=== PATIENT | male | born 1960 | race Caucasian/White ===

== ENCOUNTER 2016-08-15 03:24 | Emergency (ER) | payer MEDICAID ==
[~2016-08-15] VITALS: Ht 182.9 cm; Wt 90.7 kg
[~2016-08-15 03:24] MED LIST: *INS REG3 SQ; Benazepril Hcl PO; CEFT1VIA15 IV; DOXY150T PO; ENOX40DI SQ; INSU100V28 SQ; Metformin Hcl PO
[2016-08-15 05:58] VITALS: BP 138/80
== END 2016-08-15 05:59 | disposition home or self-care (01) ==
LOC: ER 03:27
DX: F10.129 Alcohol abuse with intoxication, unspecified (principal); I10 Essential (primary) hypertension; R51 Headache; M86.9 Osteomyelitis, unspecified; G92 Toxic encephalopathy; E11.9 Type 2 diabetes mellitus without complications; Z79.4 Long term (current) use of insulin
CPT/HCPCS: 70450; 72125; 82962; 99284; A4606; L0172; Z7610

== ENCOUNTER 2017-09-15 11:53 | Inpatient (IN) | payer MEDICAID ==
[~2017-09-15] VITALS: Ht 165.1 cm; Wt 68.0 kg
--- NOTE | 2017-09-15 12:15 | NUR ---
EVALUATION TO WOUND ON R LEG. NAD NOTED. PT AAO X4, AMB WITH STEADY GAIT. RR EVEN AND UNLABORED. PENDING MD FREY. VSS.
[2017-09-15] MEDS ORDERED: IV NS 0.9% 1,000 ML BAG IV ONE (14:00)
[2017-09-15] MEDS ORDERED: VANCOMYCIN 1 GM in IV D5W 250 ML IV ONE (14:00)
[2017-09-15] MEDS ORDERED: CEFEPIME 1 GM VIAL IV ONE (14:00)
[2017-09-15 14:01] LABS: BASOPHILS # (AUTO) 0.3 /CMM (0.0-0.2); BASOPHILS % (AUTO) 2.8 % (0.0-2.0); EOSINOPHILS # (AUTO) 0.1 /CMM (0.0-0.7); EOSINOPHILS % (AUTO) 0.5 % (0.0-6.0); HEMATOCRIT 41 % (39-51); HEMOGLOBIN 13.8 g/dL (13.5-17.5); LYMPHOCYTES # (AUTO) 1.1 /CMM (0.8-4.8); LYMPHOCYTES % (AUTO) 9.2 % (20.0-44.0); MEAN CORPUSCULAR HEMOGLOBIN 29 PG (26.0-33.0); MEAN CORPUSCULAR HGB CONC 34 g/dl (31.0-36.0); MEAN CORPUSCULAR VOLUME 85 fL (80-96); MONOCYTES # (AUTO) 1.3 /CMM (0.1-1.30); MONOCYTES % (AUTO) 10.4 % (2.0-12.0); NEUTROPHILS # (AUTO) 9.3 /CMM (1.8-8.9); NEUTROPHILS % (AUTO) 77.1 % (43.0-81.0); PLATELET COUNT (AUTO) 446 /CMM (150-450); RDW COEFFICIENT OF VARIATION 13.1 (11.5-15.0); WHITE BLOOD COUNT (AUTO) 12.1 K/uL (4.3-11.0)
[2017-09-15 14:10] LABS: CALCIUM, SERUM 8.6 mg/dL (8.5-10.1); CREATININE 0.8 mg/dL (0.6-1.3); POTASSIUM 3.9 mmol/L (3.5-5.1)
[2017-09-15 14:14] LABS: INR 1.05 (0.85-1.15)
[2017-09-15 14:16] LABS: ALBUMIN 2.7 g/dL (3.4-5.0); BILIRUBIN,DIRECT 0.3 mg/dL (0.0-0.2); TOTAL PROTEIN, SERUM 9.1 g/dL (6.4-8.2)
[2017-09-15] MEDS ORDERED: CEFEPIME 2 GM in IV NS 0.9% 50 ML IV ONE (14:30)
[2017-09-15] MEDS ORDERED: CEFEPIME 2 GM in IV D5W 100 ML IV ONE (14:30)
[2017-09-15 16:59] LABS: APPEARANCE,URINE Clear (CLEAR); BILIRUBIN,URINE Negative (NEGATIVE); BLOOD, URINE Small Ery/uL (NEGATIVE); COLOR,URINE Yellow (YELLOW); KETONES,URINE Negative (NEGATIVE); LEUKOCYTE ESTERASE ,URINE Negative (NEGATIVE); NITRITE, URINE Negative (NEGATIVE); PH,URINE 6.5 (5.0-8.0); PROTEIN,URINE Negative (NEGATIVE); UGLUCOSE Negative (NEGATIVE); UROBILINOGEN,URINE 0.2 EU/dL (0.2)
[2017-09-15 17:13] LABS: BACTERIA,URINE None seen /HPF (None Seen); SQUAMOUS EPITHELIAL CELL,UR Few /HPF (None Seen); WBC,URINE 0-2 /HPF (0-3)
--- NOTE | 2017-09-15 17:59 | NUR ---
CALLED [facility] TISSUE TECHNOLOGIST WAS PAGED.
--- NOTE | 2017-09-15 18:52 | NUR ---
RECEIVED REPORT FROM JONAH STRONG.
--- NOTE | 2017-09-15 19:50 | NUR ---
LOUIS REGALADO GAVE REPORT TO ADMITTING RN FOR MS BED 327-2
--- NOTE | 2017-09-15 19:58 | NUR ---
PT TRANSFERRED VIA W/C
--- NOTE | 2017-09-15 20:02 | NUR ---
SCOUT SNIPER NEW ADMISSION NOTES RECEIVED PATIENT FROM ER VIA GURNEY, ACCOMPANIED BY STAFF, A & O X 4, MOZAMBICAN/CROATIAN SPEAKING. NO C/O PAIN, RESP EVEN & NON LABORED. NO DISCOMFORT NOTED. AMBULATORY TOLERATED. CONTINENT OF B & BM. BODY CHECK DONE & DOCUMENTED. PHOTOS TAKEN. DX IS UNCONTROLLED DIABETES/WOUND. ALL BELONGINGS ACCOUNTED FOR & DOCUMENTED BY SCRIPT MANAGER. ON TELE MONITORING WITH SR 82. IV SITE TO LAC, INTACT PATENT. ALL ORDERS VERIFIED WITH MD, NOTED & CARRIED OUT. WOUND SITES COVERED WITH DRY DRESSINGS. BED IN LOW LOCKED POSITION. CALL LIGHT WITHIN REACH. WILL CONTINUE TO MONITOR ACCORDINGLY.
[2017-09-15 20:05] VITALS: BP 158/94
[2017-09-15 20:10] VITALS: BP 158/94
[2017-09-15] MEDS ORDERED: ONDANSETRON HCL/PF 4 MG/2 ML VIAL IVP PRN (21:00)
[2017-09-15] MEDS ORDERED: HYDROCODONE/APAP 5/325MG 1 EACH TABLET PO PRN (21:00)
[2017-09-15] MEDS ORDERED: ACETAMINOPHEN 325 MG TABLET PO PRN (21:00)
[2017-09-15] MEDS ORDERED: ZOLPIDEM TARTRATE 5 MG TABLET PO PRN (21:00)
[2017-09-15] MEDS ORDERED: DEXTROSE 50%-WATER 50 ML DISP.SYRIN IV PRN (21:00)
[2017-09-15] MEDS ORDERED: MAGNESIUM HYDROXIDE 30 ML UDC PO PRN (21:00)
[2017-09-15] MEDS ORDERED: Z GUARD REMEDY 2 OZ OINT TP PRN (21:00)
[2017-09-15] MEDS ORDERED: MAG HYDROX/AL HYDROX/SIMETH 30 ML UDC PO PRN (21:00)
[2017-09-15] MEDS ORDERED: hydrALAZINE HCL 25 MG TABLET PO PRN (21:30)
[2017-09-15 22:00] VITALS: BP 134/81
[2017-09-15] MEDS ORDERED: VANCOMYCIN 1 GM in IV NS 0.9% 250 ML IV SCH (22:00)
[2017-09-15] MEDS: IV NS 0.9% 1,000 ML IV SCH (22:17)
[2017-09-15] MEDS: BLOOD SUGAR DIAGNOSTIC 1 EACH STRIP IN SCH (22:20)
[2017-09-15] MEDS: ENOXAPARIN SODIUM 40 MG/0.4 ML DISP.SYRIN SQ SCH (22:22)
--- NOTE | 2017-09-15 22:26 | NUR ---
VANCOMYCIN NOT ADMINISTERED PATIENT WAS GIVEN FIRST DOSE OF VANCOMYCIN IN THE ER, NEXT DOSE IS SCHEDULED @ 2100 BUT PER PHARMACY NOTE, DO NOT ADMINISTER VANCO, PHARMACY TO DOSE. WILL CONTINUE TO MONITOR THE PATIENT.
[2017-09-16] MEDS: BLOOD SUGAR DIAGNOSTIC 1 EACH STRIP IN SCH ×6 (01:28→20:53)
[2017-09-16 04:00] VITALS: BP 134/66
[2017-09-16] MEDS ORDERED: CEFEPIME 1 GM in IV NS 0.9% 50 ML IV SCH (05:00)
--- NOTE | 2017-09-16 05:41 | NUR ---
CABLE WIRER NOTE CEFEPIME IS DUE TO BE ADMINISTERED @ 0500, BUT NOT AVAILABLE IN THE [facility] ON THE FLOOR. INFORMED & FAXED TO [facility] [employer] PRODUCTION MACHINE OPERATOR, WAITING FOR PLASTICS PRODUCTION MACHINE OPERATOR TO BRING THE MEDICINE.
--- NOTE | 2017-09-16 06:45 | NUR ---
AV SPECIALIST NOTE HAVE NOT RECEIVED CEFEPIME FROM [facility] PERSONAL LINES SALES EXECUTIVE YET. [facility] PERSONAL LINES SALES EXECUTIVE INFORMED THAT IF HE WONT BE ABLE TO BRING THE MEDICINE BY 0600, WILL ENDORSE TO PHARMACY & AM RN TO F/U.
--- NOTE | 2017-09-16 07:09 | NUR ---
TRIAL COURT JUSTICE CLOSING NOTES PATIENT RESTING IN BED, A & O X 4, URUGUAYAN/NEPALI SPEAKING. NO C/O PAIN, RESP EVEN & NON LABORED. NO DISCOMFORT NOTED. AMBULATORY TOLERATED. CONTINENT OF B & BM. ON TELE MONITORING WITH SR 86. IV SITE TO LAC, INTACT PATENT. WOUND SITES COVERED WITH DRY DRESSINGS. BED IN LOW LOCKED POSITION. CALL LIGHT WITHIN REACH. WILL ENDORSE TO AM RN FOR CONTINUITY OF CARE.
[2017-09-16] MEDS: IV NS 0.9% 1,000 ML IV SCH ×2 (07:25→16:56)
--- NOTE | 2017-09-16 07:37 | NUR ---
FOLDER MACHINE ADJUSTER: INITIAL NOTE RECEIVED PT A/OX4. ON TELE MONITORING SR AT 85 BPM. NO DISTRESS NOTED. NO SOB NOTED. NO PAIN NOTED. BRP. AMBULATES WITHOUT ASSIST. BLE SWELLING AND DISCOLORATION NOTED. WOUND DRESSING INTACT. ON CCHO DIET. L AC #18 RUNNING NS AT 100ML/HR. SITE CLEAR AND PATENT. NO BLEEDING OR SWELLING NOTED. RESTING COMFORTABLY IN BED. CALL LIGHT WITHIN REACH.
--- NOTE | 2017-09-16 07:38 | NUR ---
INFORMED TO PHARMACY CEFEPIME WAS NOT AVAILABLE ON THE FLOOR, CLIENT SERVER PROGRAMMER MADE AWARE. SPOKE TO GAMALIEL @ PHARMACY & TIME OF THE MEDICINE WILL BE ADJUSTED, ENDORSED TO AM RN TO F/U.
[2017-09-16 07:51] LABS: BASOPHILS # (AUTO) 0.1 /CMM (0.0-0.2); BASOPHILS % (AUTO) 0.6 % (0.0-2.0); EOSINOPHILS # (AUTO) 0.1 /CMM (0.0-0.7); EOSINOPHILS % (AUTO) 1.6 % (0.0-6.0); HEMATOCRIT 34 % (39-51); HEMOGLOBIN 11.7 g/dL (13.5-17.5); LYMPHOCYTES % (AUTO) 10.9 % (20.0-44.0); MEAN CORPUSCULAR HEMOGLOBIN 30 PG (26.0-33.0); MEAN CORPUSCULAR HGB CONC 35 g/dl (31.0-36.0); MEAN CORPUSCULAR VOLUME 85 fL (80-96); MONOCYTES # (AUTO) 1.1 /CMM (0.1-1.30); MONOCYTES % (AUTO) 12.1 % (2.0-12.0); NEUTROPHILS % (AUTO) 74.8 % (43.0-81.0); PLATELET COUNT (AUTO) 360 /CMM (150-450); RDW COEFFICIENT OF VARIATION 13.7 (11.5-15.0); RED BLOOD CELL COUNT(AUTO) 3.95 MIL/uL (4.5-6.0); WHITE BLOOD COUNT (AUTO) 9.3 K/uL (4.3-11.0)
[2017-09-16] MEDS ORDERED: FEE PK DOSING 1 MIN EA MC ONE ×2 (07:51→07:53)
[2017-09-16 08:03] VITALS: BP 140/76
[2017-09-16 08:07] LABS: CALCIUM, SERUM 7.9 mg/dL (8.5-10.1); CREATININE 0.8 mg/dL (0.6-1.3); MAGNESIUM 1.8 mg/dL (1.8-2.4); POTASSIUM 3.7 mmol/L (3.5-5.1)
[2017-09-16 08:15] LABS: THYROID STIMULATING HORMONE 3.407 uIU/mL (0.358-3.74)
[2017-09-16] MEDS: CEFEPIME 1 GM in IV NS 0.9% 50 ML IV SCH ×3 (09:03→23:17)
[2017-09-16] MEDS: ASPIRIN 81 MG TAB.CHEW PO SCH (09:04)
[2017-09-16] MEDS: AMLODIPINE BESYLATE 5 MG TABLET PO SCH (09:04)
[2017-09-16] MEDS: INSULIN REGULAR, HUMAN 100 UNIT/ML 3 ML VIAL SQ PRN ×2 (09:13→17:05)
[2017-09-16] MEDS: VANCOMYCIN 1 GM in IV NS 0.9% 250 ML IV SCH ×2 (09:38→16:55)
--- NOTE | 2017-09-16 09:58 | NUR ---
WOUND CARE CONSULT: PT PRESENTS WITH LOWER EXTREMITY ULCERS WITH PURULENT DRAINAGE, PRESENT ON ADMISSION. PT REFUSED FULL SKIN ASSESSMENT OF BACK AND BUTTOCKS. PT IS AMBULATORY AND CONTINENT. DR KEARNS IN TO EXAMINE PT. DEFER TO PODIATRY FOR WOUND TREATMENT PLAN. WILL SEE PRN. FLORES IN AGREEMENT WITH PLAN OF CARE. Addendum: 09/16/17 at 0964 by SAGRARIO COLIN WNDNU Amended: Links added.
--- NOTE | 2017-09-16 15:59 | NUR ---
NOTIFIED DR HERRERA ABOUT US OF BLE VENOUS RESULTS. NO NEW ORDERS.
[2017-09-16] MEDS: LACTOBACILLUS RHAMNOSUS GG 1 EACH CAP.SPRINK PO SCH (16:56)
[2017-09-16 16:58] VITALS: BP 141/76
--- NOTE | 2017-09-16 18:34 | NUR ---
MS RN: CLOSING NOTE PT TOOK ALL MEDICATIONS ON TIME. NO ADVERSE REACTIONS NOTED. NO SOB NOTED. NO PAIN NOTED. A/OX4. PALESTINIAN SPEAKING. ABLE TO UNDERSTAND SOME LATVIAN. BRP. BEDREST DUE TO BLE BEDSIDE DEBRIDEMENT DONE 09/16/17 BY MD CAMACHO. DRESSING INTACT. TO BE CHANGED TOMORROW ORDERED BT . Ashley AC #22 RUNNING NS AT 100 ML/HR. SITE CLEAR AND PATENT. INSULIN GIVEN PER SLIDING SCALE. RESTING COMFORTABLY IN BED. CALL LIGHT WITHIN REACH. TO CALL NISB LAATE [phone] FOR ANY QUESTIONS OR NEEDS.
--- NOTE | 2017-09-16 19:30 | NUR ---
RN NOTES RECEIVED PATIENT IN BED AWAKE, OA X 3, ABLE TO MAKE NEEDS KNOWN. NO ACUTE DISTRESS NOTED. DENIES ANY PAIN AT THIS TIME. IV SITE PATENT, INTACT; IVF INFUSING ORDERED. SAFETY REMINDERS GIVEN. ON LOW BED WITH BILATERAL UPPER SIDE RAILS UP. CALL RUSHING WITHIN EASY REACH. WILL CONTINUE TO MONITOR.
[2017-09-16 20:00] VITALS: BP 139/71
[2017-09-16] MEDS: ENOXAPARIN SODIUM 40 MG/0.4 ML DISP.SYRIN SQ SCH (20:54)
[2017-09-17] MEDS: BLOOD SUGAR DIAGNOSTIC 1 EACH STRIP IN SCH ×6 (00:59→21:07)
[2017-09-17] MEDS: VANCOMYCIN 1 GM in IV NS 0.9% 250 ML IV SCH ×3 (02:01→17:56)
--- NOTE | 2017-09-17 06:26 | NUR ---
RN NOTES PATIENT ASLEEP, EASILY AROUSABLE. RESPIRATIONS EVEN. NO SIGNS OF PAIN NOTED. DUE MEDS GIVEN WITH NO ASE NOTED. NO SYMPTOMS OF HYPER/HYPOGLYCEMIA. NEEDS ATTENDED. SAFETY PRECAUTIONS AND COMFORT MEASURES IN PLACE. WILL GIVE REPORT TO DAY SHIFT FOR CONTINUITY OF CARE.
--- NOTE | 2017-09-17 07:00 | NUR ---
RN NOTES: PATIENT RESTING IN BED. AOX4. NO SIGNS OF DISTRESS NOTED. IV SITE GAUGE 22 PATENT AND INTACT. PATIENT DENYING PAIN. BED IN LOWEST LOCKED POSITION. CALL LIGHT WITHIN REACH. WILL CONTINUE TO MONITOR
[2017-09-17] MEDS: IV NS 0.9% 1,000 ML IV SCH ×3 (07:22→22:06)
[2017-09-17 08:00] VITALS: BP 147/71
[2017-09-17] MEDS: CEFEPIME 1 GM in IV NS 0.9% 50 ML IV SCH ×3 (08:43→23:31)
[2017-09-17] MEDS: ASPIRIN 81 MG TAB.CHEW PO SCH (08:47)
[2017-09-17] MEDS: LACTOBACILLUS RHAMNOSUS GG 1 EACH CAP.SPRINK PO SCH ×2 (08:48→16:36)
[2017-09-17] MEDS: AMLODIPINE BESYLATE 5 MG TABLET PO SCH (08:48)
[2017-09-17 12:13] LABS: BASOPHILS # (AUTO) 0.1 /CMM (0.0-0.2); EOSINOPHILS # (AUTO) 0.2 /CMM (0.0-0.7); EOSINOPHILS % (AUTO) 2.5 % (0.0-6.0); HEMATOCRIT 35 % (39-51); HEMOGLOBIN 12.4 g/dL (13.5-17.5); LYMPHOCYTES # (AUTO) 0.9 /CMM (0.8-4.8); MEAN CORPUSCULAR HEMOGLOBIN 30 PG (26.0-33.0); MEAN CORPUSCULAR HGB CONC 35 g/dl (31.0-36.0); MEAN CORPUSCULAR VOLUME 85 fL (80-96); MONOCYTES # (AUTO) 0.8 /CMM (0.1-1.30); MONOCYTES % (AUTO) 13.2 % (2.0-12.0); NEUTROPHILS # (AUTO) 4.3 /CMM (1.8-8.9); NEUTROPHILS % (AUTO) 69.3 % (43.0-81.0); PLATELET COUNT (AUTO) 376 /CMM (150-450); RED BLOOD CELL COUNT(AUTO) 4.17 MIL/uL (4.5-6.0); WHITE BLOOD COUNT (AUTO) 6.1 K/uL (4.3-11.0)
[2017-09-17 12:24] LABS: CREATININE 0.7 mg/dL (0.6-1.3); MAGNESIUM 1.7 mg/dL (1.8-2.4); POTASSIUM 3.7 mmol/L (3.5-5.1)
[2017-09-17] MEDS: Magnesium 1GM/D5W 100ML PREMIX 100 ML IV SCH ×2 (13:08→14:24)
[2017-09-17 16:00] VITALS: BP 149/75
--- NOTE | 2017-09-17 16:25 | NUR ---
RN NOTES: PT HELD DUE TO DVT IMAGING OF LOWER EXTRMITY RESULTS. DR HERRERA NOTIFIED. DR GAMINO AWARE WELL
--- NOTE | 2017-09-17 16:39 | NUR ---
RN NOTES: BLOOD SUGAR 136. INSULIN HELD PATIENT REFUSING. STATES THAT HE WILL NOT EAT NOW
--- NOTE | 2017-09-17 19:00 | NUR ---
RN NOTES: PATIENT'S RIGHT EXTREMITY ASSESSED; NOT RED NOR WARM TO TOUCH. PATIENT DENIES PAIN. NO SWELLING NOTED. CAPILLARY REFILL LESS THAN 3 SECONDS. PATIENT DENIES SENSORY DEFECIT
--- NOTE | 2017-09-17 19:00 | NUR ---
RN NOTES: PATIENT REFUSING INSULIN THROUGHOUT SHIFT AFTER EATING. BLOOD SUGAR BEING MONITORED BENEFITS AND RISKS EXPLAINED MULTIPLE TIMES.
--- NOTE | 2017-09-17 19:13 | NUR ---
RN NOTES: PATIENT RESTING IN BED. AOX4. NO SIGNS OF DISTRESS NOTED. PATIENT DENYING PAIN. IV SITE ON LEFT AC PATENT AND INTACT. BED IN LOWEST LOCKED POSITION. CALL LIGHT WITHIN REACH. PATIENT ENCOURAGED TO TURN AND POSITION Q 2 HOURS. WOUND DRESSING CHANGED. NO ADVERSE REACTIONS NOTED. WILL ENDORSE TO NEXT SHIFT
--- NOTE | 2017-09-17 19:25 | NUR ---
MS/POULTRY BUYER; RECEIVED PT'S REPORTS FROM THE DAY SHIFT RN FOR CONTINUITY OF CARE. AT THIS TIME PT IN BED AWAKE , ALERT AND ORIENTED X 4. VERBALLY RESPONSIVE. PT SAID I AM GOOD. DENIES PAIN. IVF ON PROGRESS. BED ON LOWER POSITION AND LOCKED FOR SAFETY. SIDE RAILS X 2 ARE UP FOR SAFETY. PT INSTRUCTED TO CALL FOR HELP AND CALL LIGHT WITHIN REACH. PT'S LT WOUND WITH DRESSING INTACT AND SO WITH THE RT LOWER LEG. NOTED PT VOIDING CLEAR YELLOW URINE HE USED THE URINAL.
[2017-09-17 20:00] VITALS: BP 147/79
[2017-09-17] MEDS: ENOXAPARIN SODIUM 40 MG/0.4 ML DISP.SYRIN SQ SCH (21:00)
--- NOTE | 2017-09-17 21:00 | NUR ---
MS/CASH POSTER; BS 131 COVERED WITH REGULAR INSULIN 2 UNITS SQ. WILL CONTINUE TO MONITOR.
[2017-09-17] MEDS: INSULIN REGULAR, HUMAN 100 UNIT/ML 3 ML VIAL SQ PRN (21:13)
[2017-09-18] MEDS: VANCOMYCIN 1 GM in IV NS 0.9% 250 ML IV SCH ×2 (00:35→09:46)
--- NOTE | 2017-09-18 01:00 | NUR ---
MS/GLUE JOINTER FEEDER; BS 140 COVERED WITH REGULAR INSULIN 2 UNITS SQ. CONTINUE TO MONITOR. PT IS AWAKE , ALERT AND ORIENTED AT THIS TIME. IVF ON PROGRESS.
[2017-09-18] MEDS: BLOOD SUGAR DIAGNOSTIC 1 EACH STRIP IN SCH ×6 (01:12→21:01)
[2017-09-18] MEDS: INSULIN REGULAR, HUMAN 100 UNIT/ML 3 ML VIAL SQ PRN ×3 (01:20→21:05)
--- NOTE | 2017-09-18 05:00 | NUR ---
MS/WOOD BORING MACHINE OPERATOR; BS 110 NO COVERAGE GIVEN. IVF ON PROGRESS.
--- NOTE | 2017-09-18 07:00 | NUR ---
MS/PROPERTY MANAGEMENT SPECIALIST; SLEPT FAIRLY. DENIES PAIN. IVF ON PROGRESS. CONTINUE TO MONITOR. WILL ENDORSE TO THE DAY SHIFT NURSE. CALL LIGHT WITHIN REACH.
[2017-09-18] MEDS: CEFEPIME 1 GM in IV NS 0.9% 50 ML IV SCH ×3 (07:56→23:49)
[2017-09-18 08:00] VITALS: BP 152/81
[2017-09-18] MEDS: ASPIRIN 81 MG TAB.CHEW PO SCH (08:03)
[2017-09-18] MEDS: AMLODIPINE BESYLATE 5 MG TABLET PO SCH (08:04)
[2017-09-18] MEDS: LACTOBACILLUS RHAMNOSUS GG 1 EACH CAP.SPRINK PO SCH ×2 (08:04→17:15)
[2017-09-18] MEDS: IV NS 0.9% 1,000 ML IV SCH ×2 (09:49→20:54)
[2017-09-18] MEDS ORDERED: DEXTROSE 50%-WATER 50 ML DISP.SYRIN IV PRN (10:30)
[2017-09-18 10:37] LABS: CALCIUM, SERUM 8.2 mg/dL (8.5-10.1); CREATININE 0.7 mg/dL (0.6-1.3); MAGNESIUM 1.7 mg/dL (1.8-2.4); POTASSIUM 3.8 mmol/L (3.5-5.1)
[2017-09-18] MEDS: Magnesium 1GM/D5W 100ML PREMIX 100 ML IV SCH ×2 (14:36→15:56)
[2017-09-18 16:00] VITALS: BP 136/76
[2017-09-18] MEDS: VANCOMYCIN 0.75 GM in IV D5W 250 ML IV SCH (18:02)
--- NOTE | 2017-09-18 18:06 | NUR ---
RN NOTES: PATIENT COMPLAINING OF CONSTIPATION. MILK OF MAGNESIA GIVEN
--- NOTE | 2017-09-18 19:30 | NUR ---
RN NOTES: PATIENT RESTING IN BED. NO SIGNS OF DISTRESS NOTED. IV SITE ON LEFT AC PATENT AND INTACT.PATIENT DENIES PAIN. PATIENT REMAINED THE SAME SINCE BEGINNING OF SHIFT DURING SHIFT, NO PAIN NOTED FROM PATIENT. DRESSING CHANGED. BLOOD SUGARS MONITORED CLOSELY. ENCOURAGED TO TURN AND REPOSITION EVERY 2 HOURS MILK OF MAGNESIA ADMINISTERED TO PATIENT, PATIENT STATES THAT HE HAS NOT HAD A BM AT THE END OF THE SHIFT. ENDORSED TO JONAH BURGOS
--- NOTE | 2017-09-18 19:30 | NUR ---
RN NOTES PATIENT RESTING IN BED. NO SIGNS OF DISTRESS NOTED. IV SITE ON LEFT AC PATENT AND INTACT.PATIENT DENIES PAIN. PATIENT REMAINED THE SAME SINCE BEGINNING OF SHIFT DURING SHIFT, NO PAIN NOTED FROM PATIENT. DRESSING CHANGED. BLOOD SUGARS MONITORED CLOSELY. ENCOURAGED TO TURN AND REPOSITION EVERY 2 HOURS MILK OF MAGNESIA ADMINISTERED TO PATIENT, PATIENT STATES THAT HE HAS NOT HAD A BM AT THE END OF THE SHIFT. IV FLUIDS STILL RUNNING FROM PREVIOUS ADMINISTRATION AT 100 ML/HOUR, BAG HALF FULL. ENDORSED TO JONAH BURGOS
--- NOTE | 2017-09-18 19:39 | NUR ---
RN Initial Notes Received pt sitting upright in bed,bilateral heels are offloaded. A/o x4, respirations are even and unlabored, not in any acute distress noted. Denies any pain at this time. No c/o SOb, n/v, chest pain. IV to LAC intact, no infiltration noted. Dressing kept clean and dry. Safety measures in place. Instructed pt to use call light when assistance is needed, call light is left within reach.
[2017-09-18 20:00] VITALS: BP 148/86
[2017-09-18 20:08] VITALS: BP 148/86
[2017-09-18] MEDS: ENOXAPARIN SODIUM 40 MG/0.4 ML DISP.SYRIN SQ SCH (21:01)
--- NOTE | 2017-09-18 23:30 | NUR ---
RN NOTES INSERTED NEW PERIPHERAL IV TO LEFT HAND G22. TOLERATED PROCEDURE WELL. NO S/SX OF INFECTION AT THIS TIME. DRESSING KEPT CLEAN AND DRY. WILL CONTINUE TO MONITOR THROUGHOUT SHIFT.
[2017-09-19] MEDS: VANCOMYCIN 0.75 GM in IV D5W 250 ML IV SCH ×3 (00:27→17:14)
[2017-09-19] MEDS: IV NS 0.9% 1,000 ML IV SCH ×2 (05:18→16:05)
--- NOTE | 2017-09-19 06:33 | NUR ---
RN Closing Notes All due meds given, needs met and rendered. a/o x3, remains afebrile. Respirations are even and unlabored, not in any acute distress noted. Denies any pain, SOB, n/v during shift. Currently on atb therapy with no ASE noted. Pt is able to reposition self, bilateral heels are offloaded. Safety measures in place. Bed is in its low/locked position. Instructed pt to use call light when assistance is needed, call light is left within reach. Will endorse to next shift for continuity of care.
[2017-09-19] MEDS: BLOOD SUGAR DIAGNOSTIC 1 EACH STRIP IN SCH ×4 (07:04→20:39)
--- NOTE | 2017-09-19 07:25 | NUR ---
ms rn initial notes Received patient in bed, asleep, head of bed elevated, no SOB or distress noted, on room air and tolerated well. IV intact and patent with IVF infusing well. Kept patient clean and comfortable in bed, call light with in patient reach, will continue to monitor accordingly.
[2017-09-19 08:00] VITALS: BP 142/73
[2017-09-19 08:15] LABS: CALCIUM, SERUM 8.2 mg/dL (8.5-10.1); CREATININE 0.7 mg/dL (0.6-1.3); MAGNESIUM 1.8 mg/dL (1.8-2.4); PHOSPHORUS 3.6 mg/dL (2.5-4.9)
[2017-09-19 08:28] LABS: POTASSIUM 4.1 mmol/L (3.5-5.1)
[2017-09-19] MEDS: LACTOBACILLUS RHAMNOSUS GG 1 EACH CAP.SPRINK PO SCH ×2 (08:35→17:14)
[2017-09-19] MEDS: ASPIRIN 81 MG TAB.CHEW PO SCH (08:35)
[2017-09-19] MEDS: CEFEPIME 1 GM in IV NS 0.9% 50 ML IV SCH ×2 (08:35→16:05)
[2017-09-19] MEDS: AMLODIPINE BESYLATE 5 MG TABLET PO SCH (08:36)
--- NOTE | 2017-09-19 11:05 | NUR ---
MS RN: REPORT NOTE RECEIVED PT REPORT FROM SHONNA. PT A/OX4.TOOK ALL MORNING MEDS ON TIME. NO ADVERSE REACTIONS NOTED. BEDREST. CCHO DIET. L WRIST RUNNING NS AT 100ML/HR. NO DISTRESS NOTED. NO SOB NOTED. NO PAIN NOTED.
[2017-09-19] MEDS: INSULIN REGULAR, HUMAN 100 UNIT/ML 3 ML VIAL SQ PRN ×2 (12:17→20:45)
[2017-09-19 16:00] VITALS: BP 153/81
--- NOTE | 2017-09-19 18:46 | NUR ---
MS RN: CLOSING NOTE PT TOOK ALL MEDICATIONS ON TIME. NO ADVERSE REACTIONS NOTED. A/OX4. NO DISTRESS NOTED. NO SOB NOTED. NO PAIN NOTED. CONTINENT. UES URINAL. WOUND CARE DONE ORDERED. L WRIST #22 RUNNING NS @ 100ML/HR. SITE CLEAR AND PATENT. INSULIN GIVEN ORDERED PER SLIDING CARE. RESTING COMFORTABLY IN BED. CALL LIGHT WITHIN REACH.
[2017-09-19 20:00] VITALS: BP 139/73
--- NOTE | 2017-09-19 20:00 | NUR ---
MS/RN OPENING NOTES PATIENTI
--- NOTE | 2017-09-19 20:00 | NUR ---
MS/RN OPENING NOTES PATIENT IN BED, ALERT, ORIENTED X3, ABLE TO VERBALIZE NEEDS AND RESPOND, CAN SPEAK AND UNDERSTAND SIMPLE CHINESE, BERMUDIAN SPEAKING, REQUIRE ASSISTANCE WITH WOUND TREATMENT ON BLE. MONITOR BLOOD SUGAR, ASSIST AND PROVIDE NEEDS, CALL LIGHTS WITHIN REACH, MONITORING FOR ANY CHANGES, RECEIVED REPORT FROM AM RN FOR RICKEY, BED IN LOCK POSITION.
[2017-09-19] MEDS: ENOXAPARIN SODIUM 40 MG/0.4 ML DISP.SYRIN SQ SCH (20:27)
[2017-09-20] MEDS: CEFEPIME 1 GM in IV NS 0.9% 50 ML IV SCH ×2 (00:06→08:03)
[2017-09-20] MEDS: VANCOMYCIN 0.75 GM in IV D5W 250 ML IV SCH ×2 (01:15→08:55)
[2017-09-20] MEDS: IV NS 0.9% 1,000 ML IV SCH (01:53)
[2017-09-20] MEDS: BLOOD SUGAR DIAGNOSTIC 1 EACH STRIP IN SCH ×2 (05:58→12:09)
--- NOTE | 2017-09-20 06:47 | NUR ---
326-2 MS/RN NOTES PATEINT ABLE TO SLLEP DURING THE NIGHT.REQUIRE TREATMENT, CHANGED DAMION ZHOU, WILL CONTINUE TO MONITOR, DENIES PAIN,ON BLOOD SUGAR CHECK MONITORING.WILL ENDORSE TO AM RN FOR RICKEY.
--- NOTE | 2017-09-20 07:46 | NUR ---
MS RN: CLOSING NOTE RECEIVED PT A/OX4. NO DISTRESS NOTED. NO SOB NOTED. NO PAIN NOTED. AMBULATORY. CONTINENT. USES URINAL. L WRIST #22 RUNNING NS AT 100ML/HR. SITE CLEAR AND PATENT. NO REDNESS OR BLEEDING NOTED. RESTING COMFORTABLY IN BED. CALL LIGHT WITHIN REACH.
[2017-09-20 08:00] VITALS: BP 145/81
[2017-09-20] MEDS: ASPIRIN 81 MG TAB.CHEW PO SCH (08:03)
[2017-09-20] MEDS: LACTOBACILLUS RHAMNOSUS GG 1 EACH CAP.SPRINK PO SCH (08:03)
[2017-09-20] MEDS: AMLODIPINE BESYLATE 5 MG TABLET PO SCH (08:04)
[2017-09-20 08:15] LABS: CALCIUM, SERUM 8.3 mg/dL (8.5-10.1); CREATININE 0.7 mg/dL (0.6-1.3); POTASSIUM 4.2 mmol/L (3.5-5.1)
--- NOTE | 2017-09-20 10:41 | NUR ---
ms rn notes Transfer care from other RN, patient in bed, no SOB or distress noted. No complaint of pain or discomfort, nor chest pain. Will continue to monitor accordingly.
--- NOTE | 2017-09-20 10:44 | NUR ---
MS RN: TRANSFER NOTE GAVE REPORT TO SHONNA MCKENZIE. TOOK ALL MEDICATIONS ON TIME. NO ADVERSE REACTIONS NOTED. NO PAIN NOTED. NO RICKEY NOTED. STABLE. L HAND #22 RUNNING NS AT 100ML/HR. SITE CLEAR AND PATENT. RESTING COMFORTABLY IN BED. CALL LIGHT WITHIN REACH.
[2017-09-20] MEDS ORDERED: LACT1CAP72 PO (10:49)
[2017-09-20] MEDS ORDERED: ASPI-1169 PO (10:49)
[2017-09-20] MEDS ORDERED: LEVO500T75 PO (10:49)
[2017-09-20] MEDS: INSULIN REGULAR, HUMAN 100 UNIT/ML 3 ML VIAL SQ PRN (12:11)
[2017-09-20 16:00] VITALS: BP_SYST 125; BP_SYST 142; BP_DIAS 72; BP_DIAS 80
--- NOTE | 2017-09-20 17:30 | NUR ---
ms rn pain management notes discharge instructions given to patient and able to understand. Signed discharge paper and belongings list, no items missing. Flu and pneumonia vaccine not given due to refusal. Explained the risk and benefits x 3 and still refused. Wound pictures not taken due to patient in a hurry and refusing pictures. Patient left via wheelchair accompanied by KENNETH baumann and Lori Acosta in stable condition no complaint of pain or discomfort noted. On room and tolerated well. Health teaching and education rendered. Informed Patient to follow up with primary health care physician in 1-2 weeks after discharge. MD and charge nurse aware. Vital signs checked and recorded.
== END 2017-09-20 17:20 | disposition home or self-care (01) | DRG 317 ==
LOC: ER 11:54 → TELE 19:42 → MED 09-16 09:30
PROVIDERS: ADMIT Internal Medicine; ATTEND Internal Medicine
PROC: 0KBW0ZZ Excision of Left Foot Muscle, Open Approach (ICD-10-PCS; principal; 2017-09-16)
PROC: 0KBS0ZZ Excision of Right Lower Leg Muscle, Open Approach (ICD-10-PCS; principal; 2017-09-16)
DX: E11.69 Type 2 diabetes mellitus with other specified complication (principal); M86.9 Osteomyelitis, unspecified; G92 Toxic encephalopathy; E11.621 Type 2 diabetes mellitus with foot ulcer; E11.42 Type 2 diabetes mellitus with diabetic polyneuropathy; E44.0 Moderate protein-calorie malnutrition; I82.401 Acute embolism and thrombosis of unspecified deep veins of right lower extremity; E11.51 Type 2 diabetes mellitus with diabetic peripheral angiopathy without gangrene; L03.115 Cellulitis of right lower limb; E87.1 Hypo-osmolality and hyponatremia; L97.529 Non-pressure chronic ulcer of other part of left foot with unspecified severity; L03.032 Cellulitis of left toe; I87.2 Venous insufficiency (chronic) (peripheral); Z79.4 Long term (current) use of insulin; Z79.899 Other long term (current) drug therapy; I10 Essential (primary) hypertension; M85.80 Other specified disorders of bone density and structure, unspecified site; Z91.19 Patient's noncompliance with other medical treatment and regimen; Z91.14 Patient's other noncompliance with medication regimen; Z89.422 Acquired absence of other left toe(s); Z82.49 Family history of ischemic heart disease and other diseases of the circulatory system; F10.10 Alcohol abuse, uncomplicated; Y90.9 Presence of alcohol in blood, level not specified
CPT/HCPCS: 36415; 71045-TC; 73590-TC; 73630-TC; 80048-TC; 80061-TC; 80076-TC; 80202-TC; 81000-TC; 82746; 82962-TC; 83540-TC; 83605-TC; 83735-TC; 84100-TC; 84443-TC; 85025-TC; 85652-TC; 85730-TC; 87040-TC; 87081-TC; 87086-TC; 93307-TC; 93970-TC; A4216; A4217; A4606; A6402; J0692; J1650; J1815; J3370; J3475; J7030; J7050; J7060; Z7610

== ENCOUNTER 2018-10-24 13:20 | Inpatient (IN) | payer MEDICAID ==
[~2018-10-24] VITALS: Ht 172.7 cm; Wt 110.2 kg
[~2018-10-24 13:20] MED LIST changes: -*INS REG3 SQ; +ASPI-1169 PO; -Benazepril Hcl PO; -CEFT1VIA15 IV; -DOXY150T PO; -ENOX40DI SQ; -INSU100V28 SQ; +LACT1CAP72 PO; +LEVO500T75 PO; -Metformin Hcl PO
--- NOTE | 2018-10-24 13:20 | NUR ---
PT BIB DAUGHTER C/O BLE CELLULITIS AND SOB FOR DAYS. PT IS AAOX3 CITIZEN OF [place] SPEAKING ONLY, NOT IN RESPIRATORY DISTRESS, V/S STABLE, KEPT RESTED AND COMFORTABLE, WILL CONTINUE TO MONITOR.
--- NOTE | 2018-10-24 13:34 | NUR ---
GLENDY HARGROVE AT BEDSIDE FOR EVAL.
[2018-10-24] MEDS ORDERED: VANCOMYCIN 1 GM in IV D5W 250 ML IV ONE (14:00)
[2018-10-24] MEDS ORDERED: IV NS 0.9% 1,000 ML BAG IV ONE ×2 (14:00→14:30)
[2018-10-24] MEDS ORDERED: PIPERACILLIN /TAZOBACTAM 3.375 G in IV D5W 50 ML IV ONE (14:00)
[2018-10-24] MEDS ORDERED: ONDANSETRON HCL/PF 4 MG/2 ML VIAL IVP ONE (14:00)
[2018-10-24] MEDS ORDERED: MORPHINE SULFATE INJ 2 MG/ML DISP.SYRIN IV ONE (14:00)
--- NOTE | 2018-10-24 14:02 | NUR ---
IV LINE ESTABLISHED LABS DRAWNED AND SENT TO LAB.
[2018-10-24] MEDS ORDERED: ONDANSETRON HCL/PF 4 MG/2 ML VIAL ONE (14:08)
[2018-10-24] MEDS ORDERED: MORPHINE SULFATE INJ 4 MG/ML DISP.SYRIN ONE (14:08)
--- NOTE | 2018-10-24 14:10 | NUR ---
TAKER OUT AT BEDSIDE FOR XRAY.
[2018-10-24 14:16] LABS: BASOPHILS # (AUTO) 0.1 /CMM (0.0-0.2); BASOPHILS % (AUTO) 0.2 % (0.0-2.0); EOSINOPHILS % (AUTO) 0.9 % (0.0-6.0); HEMATOCRIT 38 % (39-51); HEMOGLOBIN 13.2 g/dL (13.5-17.5); LYMPHOCYTES # (AUTO) 0.4 /CMM (0.8-4.8); MEAN CORPUSCULAR HGB CONC 34 g/dl (31.0-36.0); MEAN CORPUSCULAR VOLUME 87 fL (80-96); MONOCYTES # (AUTO) 0.8 /CMM (0.1-1.30); MONOCYTES % (AUTO) 2.2 % (2.0-12.0); NEUTROPHILS % (AUTO) 95.7 % (43.0-81.0); PLATELET COUNT (AUTO) 276 /CMM (150-450); RED BLOOD CELL COUNT(AUTO) 4.43 MIL/uL (4.5-6.0)
[2018-10-24 14:18] LABS: WHITE BLOOD COUNT (AUTO) 36.6 K/uL (4.3-11.0)
[2018-10-24 14:24] LABS: CALCIUM, SERUM 7.7 mg/dL (8.5-10.1); CARBON DIOXIDE 25 mmol/L (21-32); CHLORIDE 87 mmol/L (98-107); CREATININE 1.1 mg/dL (0.6-1.3); GLUCOSE 200 mg/dL (74-106); POTASSIUM 3.4 mmol/L (3.5-5.1); SODIUM SERUM 121 mmol/L (136-145); UREA NITROGEN, BLOOD 9 mg/dL (7-18)
[2018-10-24 14:38] LABS: ALANINE AMINOTRANSFERASE 22 U/L (12-78); ALBUMIN 2.2 g/dL (3.4-5.0); ALKALINE PHOSPHATASE 94 U/L (46-116); ASPARTATE AMINOTRANSFERASE 35 U/L (15-37); BILIRUBIN,DIRECT 0.5 mg/dL (0.0-0.2); BILIRUBIN,TOTAL 1.3 mg/dL (0.2-1.0); TOTAL PROTEIN, SERUM 7.5 g/dL (6.4-8.2)
[2018-10-24 14:39] LABS: B-TYPE NATRIURETIC PEPTIDE 3593 PG/ML (0-125)
--- NOTE | 2018-10-24 15:00 | NUR ---
TECH AT BEDSIDE FOR ULTRASOUND.
[2018-10-24 15:25] LABS: BAND % (MANUAL) 11 % (0.0-5.0); LYMPHOCYTES % (MANUAL) 3 % (16-48); MONOCYTES % (MANUAL) 3 % (0-11.0); NEUTROPHILS % (MANUAL) 83 (42-76)
--- NOTE | 2018-10-24 16:17 | NUR ---
EPIC CUSTOMS DIRECTOR PAGED VIA JASMIN PAN
--- NOTE | 2018-10-24 16:39 | NUR ---
LUCERO LOADER MAGAZINE GRINDER AT BEDSIDE FOR EVAL.
[2018-10-24] MEDS ORDERED: IV NS 0.9% 1,000 ML IV PRN (17:25)
[2018-10-24] MEDS ORDERED: MAG HYDROX/AL HYDROX/SIMETH 30 ML UDC PO PRN (17:30)
[2018-10-24] MEDS ORDERED: MAGNESIUM HYDROXIDE 30 ML UDC PO PRN (17:30)
[2018-10-24] MEDS ORDERED: HYDROCODONE/APAP 5/325MG 1 EACH TABLET PO PRN (17:30)
[2018-10-24] MEDS ORDERED: DEXTROSE 50%-WATER 50 ML DISP.SYRIN IV PRN (17:30)
[2018-10-24] MEDS ORDERED: CEFEPIME 1 GM in IV D5W 50 ML IV SCH (17:30)
[2018-10-24] MEDS: BLOOD SUGAR DIAGNOSTIC 1 EACH STRIP VI SCH ×2 (17:30→21:30)
[2018-10-24] MEDS ORDERED: Z GUARD REMEDY 2 OZ OINT TP PRN (17:30)
[2018-10-24] MEDS ORDERED: HYDROMORPHONE INJ 2 MG/ML DISP.SYRIN IV PRN (17:30)
[2018-10-24] MEDS ORDERED: ACETAMINOPHEN 325 MG TABLET PO PRN (17:30)
[2018-10-24] MEDS ORDERED: LORAZEPAM INJ 2 MG/ML VIAL IV PRN (17:30)
[2018-10-24] MEDS ORDERED: ONDANSETRON HCL/PF 4 MG/2 ML VIAL IVP PRN (17:30)
--- NOTE | 2018-10-24 19:00 | NUR ---
REPORT GIVEN TO JONAH NGUYEN FOR RICKEY.
--- NOTE | 2018-10-24 19:18 | NUR ---
SUPERVISOR PRINTING AND STAMPING NOTE RECEIVED PT VIA STRETCHER FROM ER, AOX3, SPEECH CLEAR, EVEN TONE AND PRESSURE, DENIES PAIN CURRENTLY, ON TELE ST, DENIES ANY CARDIAC OR RESPIRATORY DISTRESS, R HAND # 18G IV PATENT FLUSHING WELL, SKIN KEPT CLEAN AND DRY, PT INSTRUCTED MOTTLE LAY UP OPERATOR LIGHT USE, BED IN LOW LOCKED POSITION, WILL CONTINUE TO MONITOR FOR ANY CHANGES.
[2018-10-24 20:00] VITALS: BP 170/83
[2018-10-24] MEDS: *INSULIN REGULAR(HUMULIN R)HUM 100 UNIT/ML VIAL SQ PRN (21:33)
[2018-10-24] MEDS ORDERED: FLUCONAZOLE IN NS 100 MG in PREMIX 1 EA IV SCH ×2 (22:00)
[2018-10-25] VITALS: BP 151/72
[2018-10-25] MEDS ORDERED: FLUCONAZOLE IN NS 100 ML IV ONE (00:06)
--- NOTE | 2018-10-25 00:13 | NUR ---
call center rn note medication fluconazole 50mg/100ml iv was not available at scheduled time, administered late.
[2018-10-25 04:00] VITALS: BP 142/69
[2018-10-25 07:03] LABS: BASOPHILS # (AUTO) 0.1 /CMM (0.0-0.2); BASOPHILS % (AUTO) 0.2 % (0.0-2.0); HEMATOCRIT 34 % (39-51); HEMOGLOBIN 11.2 g/dL (13.5-17.5); LYMPHOCYTES # (AUTO) 0.5 /CMM (0.8-4.8); LYMPHOCYTES % (AUTO) 1.5 % (20.0-44.0); MEAN CORPUSCULAR HGB CONC 33 g/dl (31.0-36.0); MEAN CORPUSCULAR VOLUME 87 fL (80-96); MONOCYTES # (AUTO) 0.8 /CMM (0.1-1.30); MONOCYTES % (AUTO) 2.5 % (2.0-12.0); NEUTROPHILS # (AUTO) 30.1 /CMM (1.8-8.9); NEUTROPHILS % (AUTO) 95.8 % (43.0-81.0); PLATELET COUNT (AUTO) 231 /CMM (150-450); RED BLOOD CELL COUNT(AUTO) 3.86 MIL/uL (4.5-6.0)
[2018-10-25 07:11] LABS: ALBUMIN 1.7 g/dL (3.4-5.0); BILIRUBIN,TOTAL 1.1 mg/dL (0.2-1.0); CALCIUM, SERUM 7.3 mg/dL (8.5-10.1); CREATININE 0.9 mg/dL (0.6-1.3); MAGNESIUM 1.3 mg/dL (1.8-2.4); PHOSPHORUS 2.1 mg/dL (2.5-4.9); POTASSIUM 3.2 mmol/L (3.5-5.1); TOTAL PROTEIN, SERUM 6.1 g/dL (6.4-8.2)
[2018-10-25] MEDS: PANTOPRAZOLE 40 MG TABLET.DR PO SCH (07:28)
[2018-10-25 07:46] LABS: WHITE BLOOD COUNT (AUTO) 31.5 K/uL (4.3-11.0)
[2018-10-25] MEDS: BLOOD SUGAR DIAGNOSTIC 1 EACH STRIP VI SCH ×4 (07:59→21:08)
[2018-10-25 08:00] VITALS: BP 133/77
[2018-10-25] MEDS ORDERED: FEE PK DOSING 1 MIN EA MC ONE (08:07)
[2018-10-25 08:20] LABS: BAND % (MANUAL) 2 % (0.0-5.0); LYMPHOCYTES % (MANUAL) 2 % (16-48); MONOCYTES % (MANUAL) 4 % (0-11.0); NEUTROPHILS % (MANUAL) 92 (42-76)
[2018-10-25] MEDS ORDERED: CEFEPIME 1 GM in IV D5W 50 ML IV SCH (09:00)
[2018-10-25] MEDS: MULTIVITAMINS,THERAGRAN 1 UDTAB TABLET PO SCH (09:24)
[2018-10-25] MEDS: THIAMINE HCL 100 MG TABLET PO SCH (09:24)
[2018-10-25] MEDS: FOLIC ACID 1 MG TABLET PO SCH (09:24)
[2018-10-25] MEDS: CEFEPIME 2 GM in IV D5W 100 ML IV SCH ×2 (09:25→20:06)
[2018-10-25] MEDS: ASPIRIN 81 MG TAB.CHEW PO SCH (09:25)
[2018-10-25] MEDS ORDERED: Magnesium 1GM/D5W 100ML PREMIX 100 ML IV SCH (10:42)
[2018-10-25] MEDS: VANCOMYCIN 1.25 GM in IV D5W 500 ML IV SCH ×2 (10:49→20:48)
[2018-10-25] MEDS ORDERED: K PHOS NEUTRAL 250 MG TABLET PO ONE (11:00)
[2018-10-25] MEDS ORDERED: POTASSIUM CHLORIDE 20 MEQ TAB.PRT.SR PO ONE (11:00)
[2018-10-25] MEDS ORDERED: NEUTRA PHOS 1 POWD.PACKET PO ONE (11:00)
[2018-10-25] MEDS ORDERED: POTASSIUM CHLORIDE 20 MEQ TAB.PRT.SR PO SCH (11:00)
[2018-10-25] MEDS: Magnesium 1GM/D5W 100ML PREMIX 100 ML IV SCH ×2 (11:41→12:16)
[2018-10-25 12:00] VITALS: BP 149/73
[2018-10-25] MEDS: *INSULIN REGULAR(HUMULIN R)HUM 100 UNIT/ML VIAL SQ PRN (13:31)
[2018-10-25 16:00] VITALS: BP 136/69
[2018-10-25] MEDS ORDERED: SILVER SULFADIAZINE CREAM 25 GM TUBE TP SCH (17:00)
--- NOTE | 2018-10-25 19:10 | NUR ---
SENIOR ACCOUNT CLERK NOTE PATIENT IS AOX3, SPEECH CLEAR, EVEN TONE AND PRESSURE, DENIES PAIN CURRENTLY, ON TELE ST/SR, DENIES ANY CARDIAC OR RESPIRATORY DISTRESS, R HAND # 18G IV WITH NS AT 100 ML/HR, PATENT FLUSHING WELL, SKIN KEPT CLEAN AND DRY, SAFETY MAINTAINED AT ALL TIMES, CALL LIGHT WITHIN REACH, BED IN LOW LOCKED POSITION, WILL CONTINUE TO MONITOR FOR ANY CHANGES.
--- NOTE | 2018-10-25 19:27 | NUR ---
HOT PLATE PLYWOOD PRESS OPERATOR CLOSING NOTE PATIENT IN BED, AWAKE, NO DISTRESS OR SOB, ON ROOM AIR, NO PAIN, AOX3, ON TELE ST 90'S, R HAND # 18G IV INTACT AND PATENT RUNNING NS @ 5ML/HR. SKIN KEPT CLEAN AND DRY, SAFETY MEASURES IN PLACE. CALL LIGHT WITHIN REACH. CARE ENDORSED TO COSTING MANAGER RN.
[2018-10-25 20:00] VITALS: BP_SYST 158; BP_DIAS 80; BP_DIAS 88
[2018-10-25] MEDS: FLUCONAZOLE (100 MG) 100 MG TABLET PO SCH (21:08)
[2018-10-25] MEDS: INSULIN REGULAR, HUMAN 100 UNIT/ML 3 ML VIAL SQ PRN (21:12)
[2018-10-26] VITALS (7 sets, daily range): BP systolic 149–168; BP diastolic 79–90
[2018-10-26 06:37] LABS: BASOPHILS # (AUTO) 0.1 /CMM (0.0-0.2); BASOPHILS % (AUTO) 0.3 % (0.0-2.0); EOSINOPHILS % (AUTO) 0.1 % (0.0-6.0); HEMATOCRIT 32 % (39-51); HEMOGLOBIN 11.2 g/dL (13.5-17.5); LYMPHOCYTES # (AUTO) 0.5 /CMM (0.8-4.8); LYMPHOCYTES % (AUTO) 1.7 % (20.0-44.0); MEAN CORPUSCULAR HGB CONC 35 g/dl (31.0-36.0); MEAN CORPUSCULAR VOLUME 86 fL (80-96); MONOCYTES # (AUTO) 1.1 /CMM (0.1-1.30); MONOCYTES % (AUTO) 4.1 % (2.0-12.0); NEUTROPHILS # (AUTO) 25.9 /CMM (1.8-8.9); NEUTROPHILS % (AUTO) 93.8 % (43.0-81.0); PLATELET COUNT (AUTO) 225 /CMM (150-450); RED BLOOD CELL COUNT(AUTO) 3.75 MIL/uL (4.5-6.0); WHITE BLOOD COUNT (AUTO) 27.5 K/uL (4.3-11.0)
--- NOTE | 2018-10-26 06:40 | NUR ---
FILM WRITER NOTE DR CRUZ CALLED CONCERNING XRAY OF LEFT FOOT STATES OSTEOMYELITIS AROUND 5TH TOE POSSIBLE GANGRENE GOING TO BONE, STATES WILL SEND FINAL ANALYSIS.
[2018-10-26] MEDS: IV NS 0.9% 1,000 ML IV PRN ×2 (06:42→17:21)
[2018-10-26 06:56] LABS: CALCIUM, SERUM 7.4 mg/dL (8.5-10.1); CREATININE 0.8 mg/dL (0.6-1.3); MAGNESIUM 1.6 mg/dL (1.8-2.4); PHOSPHORUS 2.5 mg/dL (2.5-4.9); POTASSIUM 3.1 mmol/L (3.5-5.1)
--- NOTE | 2018-10-26 08:03 | NUR ---
HAND STONER NOTES RECEIVE PATIENT IN BED, SLEEPING BUT EASY TO WAKE UP, PATIENT ALERT ORIENTED, BLE WITH DRESSING ON, ABLE TO MOVE BOTH TOES ON BOTH LEGS, SKIN WARM TO TOUCH, RIGHT HAND HL ON IV FLUID ORDERED, BED LOCKED IN LOWEST POSITION, AND CALL LIGHT IS IN REACH, PATIENT ON TELE MONITOR SR HEART RATE 94, WILL CONTINUE TO MONITOR CLOSELY
[2018-10-26] MEDS: FOLIC ACID 1 MG TABLET PO SCH (08:26)
[2018-10-26] MEDS: PANTOPRAZOLE 40 MG TABLET.DR PO SCH (08:26)
[2018-10-26] MEDS: ASPIRIN 81 MG TAB.CHEW PO SCH (08:26)
[2018-10-26] MEDS: MULTIVITAMINS,THERAGRAN 1 UDTAB TABLET PO SCH (08:26)
[2018-10-26] MEDS: FLUCONAZOLE (100 MG) 100 MG TABLET PO SCH (08:26)
[2018-10-26] MEDS: THIAMINE HCL 100 MG TABLET PO SCH (08:26)
[2018-10-26] MEDS: CEFEPIME 2 GM in IV D5W 100 ML IV SCH ×2 (08:28→20:20)
[2018-10-26] MEDS: ENOXAPARIN SODIUM 40 MG/0.4 ML DISP.SYRIN SQ SCH (08:33)
[2018-10-26] MEDS: BLOOD SUGAR DIAGNOSTIC 1 EACH STRIP VI SCH ×4 (08:34→21:22)
[2018-10-26] MEDS: VANCOMYCIN 1.25 GM in IV D5W 500 ML IV SCH ×2 (09:27→21:21)
[2018-10-26] MEDS: POTASSIUM CHLORIDE 20 MEQ TAB.PRT.SR PO SCH ×2 (09:29→10:17)
--- NOTE | 2018-10-26 10:00 | NUR ---
TELE,RN NOTE NEW HL ON LT HAND INSERTED WITH GOOD BLOOD RETURNE, ALL NEEDS ATTENDED, WILL CONT TO MONITOR CLOSELY
[2018-10-26] MEDS: Magnesium 1GM/D5W 100ML PREMIX 100 ML IV SCH ×2 (10:17→11:13)
--- NOTE | 2018-10-26 12:00 | NUR ---
HORTICULTURAL SPECIALTY GROWER INSIDE NOTE BLOOD SUGAR 168 MG\ DL WILL GIVE COVERAGE WITH INSULIN
--- NOTE | 2018-10-26 12:00 | NUR ---
MS RN NOTE TX DONE ON BOTH LEGS ORDERED , KEEP CLEAN DRY , CALL LIGHT WITHIN REACH
--- NOTE | 2018-10-26 14:41 | NUR ---
MS RN NOTE WOUND CX FROM LT LEG DONE , LAB NOTIFIED ALSO, FAMILY AT BEDSIDE Addendum: 10/26/18 at 1444 by LILIAN GUERRA RN SPOKE WITH DR LORE GIPSON NOTIFIED THAT BP 160/56 AND NA TODAY 123 ORDERED PILI PEREZU
--- NOTE | 2018-10-26 15:11 | NUR ---
LADLER NOTE PATIENT C\O COUGH, LORE GIPSON DNP NOTIFIED STATED CONT ON ATB NO NEW ORDER GIVEN AT THIS TIME ,NO NEW ORDER GIVEN FOR NA 123
[2018-10-26] MEDS: VALSARTAN 80 MG TABLET PO SCH (15:31)
[2018-10-26] MEDS: LACTOBACILLUS RHAMNOSUS GG 1 EACH CAP.SPRINK PO SCH (16:21)
--- NOTE | 2018-10-26 17:42 | NUR ---
MS RN NOTE CONT ON IVF ORDERED , ALL NEEDS ATTENDED ,NOT IN DISTRESS
--- NOTE | 2018-10-26 18:32 | NUR ---
MS RN NOTE ATE DINNER , ABLE TO EAT SELF , ALL NEEDS ATTENDED, NOT IN ACTE DISTRESS, CONT ON IVF ORDERED BED IN LOWEST AND LOCKED POSITION,
--- NOTE | 2018-10-26 19:00 | NUR ---
SOLUTION MANAGER NOTE PATIENT IS AOX3, SPEECH CLEAR, DENIES PAIN CURRENTLY, ON TELE ST/SR, ON ROOM AIR, DENIES ANY CARDIAC OR RESPIRATORY DISTRESS, R HAND # 18G IV WITH NS AT 125 ML/HR, LEFT HAND #24G SL, BOTH PATENT FLUSHING WELL, SKIN KEPT CLEAN AND DRY, SAFETY MAINTAINED AT ALL TIMES, CALL LIGHT WITHIN REACH, BED IN LOW LOCKED POSITION, WILL CONTINUE TO MONITOR FOR ANY CHANGES.
[2018-10-26] MEDS: INSULIN REGULAR, HUMAN 100 UNIT/ML 3 ML VIAL SQ PRN (21:22)
[2018-10-27 04:00] VITALS: BP 156/84
[2018-10-27] MEDS: IV NS 0.9% 1,000 ML IV PRN ×2 (04:29→18:43)
[2018-10-27] MEDS: VANCOMYCIN 1.25 GM in IV D5W 500 ML IV SCH ×3 (04:30→21:11)
[2018-10-27 07:24] LABS: BASOPHILS # (AUTO) 0.1 /CMM (0.0-0.2); BASOPHILS % (AUTO) 0.6 % (0.0-2.0); EOSINOPHILS % (AUTO) 0.3 % (0.0-6.0); HEMATOCRIT 33 % (39-51); HEMOGLOBIN 11.4 g/dL (13.5-17.5); LYMPHOCYTES # (AUTO) 0.5 /CMM (0.8-4.8); LYMPHOCYTES % (AUTO) 3.9 % (20.0-44.0); MEAN CORPUSCULAR HGB CONC 34 g/dl (31.0-36.0); MEAN CORPUSCULAR VOLUME 86 fL (80-96); MONOCYTES % (AUTO) 7.7 % (2.0-12.0); NEUTROPHILS % (AUTO) 87.5 % (43.0-81.0); PLATELET COUNT (AUTO) 225 /CMM (150-450); RED BLOOD CELL COUNT(AUTO) 3.87 MIL/uL (4.5-6.0); WHITE BLOOD COUNT (AUTO) 13.7 K/uL (4.3-11.0)
[2018-10-27 07:46] LABS: CALCIUM, SERUM 7.3 mg/dL (8.5-10.1); CREATININE 0.7 mg/dL (0.6-1.3); MAGNESIUM 1.7 mg/dL (1.8-2.4); PHOSPHORUS 2.4 mg/dL (2.5-4.9); POTASSIUM 3.2 mmol/L (3.5-5.1)
[2018-10-27 08:00] VITALS: BP 166/83
--- NOTE | 2018-10-27 08:28 | NUR ---
WOUND CARE CONSULT WOUND CARE RECEIVED CONSULT FOR NON HEALING WOUNDS AND PODIATRY CONSULT FOR BLE. WOUND CARE WILL DEFER CONSULT AND ALL TREATMENT PLANS TO DPM DR KEARNS WHO IS CURRENTLY FOLLOWING THIS PATIENT. PATIENT WITH MICAELA AT 19. WILL SEE PRN.
[2018-10-27] MEDS: FLUCONAZOLE (100 MG) 100 MG TABLET PO SCH (08:58)
[2018-10-27] MEDS: MULTIVITAMINS,THERAGRAN 1 UDTAB TABLET PO SCH (08:58)
[2018-10-27] MEDS: FOLIC ACID 1 MG TABLET PO SCH (08:58)
[2018-10-27] MEDS: LACTOBACILLUS RHAMNOSUS GG 1 EACH CAP.SPRINK PO SCH ×2 (08:59→18:36)
[2018-10-27] MEDS: PANTOPRAZOLE 40 MG TABLET.DR PO SCH (08:59)
[2018-10-27] MEDS: VALSARTAN 80 MG TABLET PO SCH (08:59)
[2018-10-27] MEDS: THIAMINE HCL 100 MG TABLET PO SCH (08:59)
[2018-10-27] MEDS: ASPIRIN 81 MG TAB.CHEW PO SCH (08:59)
[2018-10-27] MEDS: BLOOD SUGAR DIAGNOSTIC 1 EACH STRIP VI SCH ×4 (09:00→21:27)
[2018-10-27] MEDS: ENOXAPARIN SODIUM 40 MG/0.4 ML DISP.SYRIN SQ SCH (09:01)
[2018-10-27] MEDS: CEFEPIME 2 GM in IV D5W 100 ML IV SCH ×2 (09:04→20:18)
[2018-10-27] MEDS: INSULIN REGULAR, HUMAN 100 UNIT/ML 3 ML VIAL SQ PRN ×2 (09:05→18:37)
[2018-10-27] MEDS ORDERED: POTASSIUM CHLORIDE 20 MEQ TAB.PRT.SR PO ONE (09:30)
[2018-10-27] MEDS: Magnesium 1GM/D5W 100ML PREMIX 100 ML IV SCH ×2 (12:48→13:30)
[2018-10-27 16:00] VITALS: BP 164/81
[2018-10-27] MEDS ORDERED: K PHOS NEUTRAL 250 MG TABLET PO ONE (16:30)
[2018-10-27 20:00] VITALS: BP 164/82
--- NOTE | 2018-10-27 20:00 | NUR ---
BRANDT/RN OPENING NOTES RECEIVED PATIENT IN BED , AWAKE, ALERT X3, ABLE TO VERBALIZE AND MAKE SIMPLE COMMANDS, NO PAIN REPORTED, CALM AND COOPERATIVE TOP CARE. WILL MONITOR.IV ANTIBIOTIC TO ADMINISTER AND WILL MONITOR. ANY S/S OF ADVERSE EFFECT.
--- NOTE | 2018-10-27 20:30 | NUR ---
BRANDT/RN NOTES VANCO LATEST RESULT AT 15 WNL TO ADMINISTER VANCO 1.25 GM ORDERED IV.
[2018-10-27] MEDS: *INSULIN REGULAR(HUMULIN R)HUM 100 UNIT/ML VIAL SQ PRN (21:34)
[2018-10-28] VITALS (9 sets, daily range): BP systolic 146–168; BP diastolic 71–85
--- NOTE | 2018-10-28 04:38 | NUR ---
omer/ms/rn notes PATIENT WITH SOME ANXIETY, BLOOD PRESSURE ELEVATED, REQUESTED FOR ATIVAN. WILL MONITOR.
[2018-10-28] MEDS: VANCOMYCIN 1.25 GM in IV D5W 500 ML IV SCH ×3 (04:41→22:28)
--- NOTE | 2018-10-28 07:21 | NUR ---
RN MS OPENING NOTES RECEIVED BEDSIDE REPORT. PATIENT A/O X4 IN BED AWAKE BANGLADESHI AND FRENCH SPEAKING. NO SIGNS OR SYMPTOMS OF RESPIRATORY DISTRESS OR ACUTE PAIN NOTED. SATURATING WELL ON ROOM AIR. AMBULATORY IN ROOM LEFT HAND IV # 24 NS RUNNING 125 ML/HR. NO NAUSEA, VOMITING OR DIARRHEA NOTED. SAFETY PRECAUTIONS IN PLACE BED IN LOWEST POSITION CALL LIGHT WITHIN REACH WILL CONT TO MONITOR
[2018-10-28 07:30] LABS: BASOPHILS # (AUTO) 0.1 /CMM (0.0-0.2); BASOPHILS % (AUTO) 0.9 % (0.0-2.0); EOSINOPHILS % (AUTO) 0.8 % (0.0-6.0); HEMATOCRIT 34 % (39-51); LYMPHOCYTES # (AUTO) 0.6 /CMM (0.8-4.8); LYMPHOCYTES % (AUTO) 6.1 % (20.0-44.0); MEAN CORPUSCULAR HGB CONC 35 g/dl (31.0-36.0); MEAN CORPUSCULAR VOLUME 85 fL (80-96); MONOCYTES # (AUTO) 0.5 /CMM (0.1-1.30); MONOCYTES % (AUTO) 5.3 % (2.0-12.0); NEUTROPHILS # (AUTO) 8.5 /CMM (1.8-8.9); NEUTROPHILS % (AUTO) 86.9 % (43.0-81.0); PLATELET COUNT (AUTO) 255 /CMM (150-450); RED BLOOD CELL COUNT(AUTO) 3.98 MIL/uL (4.5-6.0); WHITE BLOOD COUNT (AUTO) 9.8 K/uL (4.3-11.0)
[2018-10-28 07:32] LABS: CALCIUM, SERUM 7.5 mg/dL (8.5-10.1); CREATININE 0.7 mg/dL (0.6-1.3); MAGNESIUM 1.8 mg/dL (1.8-2.4); PHOSPHORUS 2.7 mg/dL (2.5-4.9); POTASSIUM 3.3 mmol/L (3.5-5.1)
[2018-10-28] MEDS: FLUCONAZOLE (100 MG) 100 MG TABLET PO SCH (08:24)
[2018-10-28] MEDS: LACTOBACILLUS RHAMNOSUS GG 1 EACH CAP.SPRINK PO SCH ×2 (08:24→16:32)
[2018-10-28] MEDS: VALSARTAN 80 MG TABLET PO SCH (08:24)
[2018-10-28] MEDS: ASPIRIN 81 MG TAB.CHEW PO SCH (08:24)
[2018-10-28] MEDS: PANTOPRAZOLE 40 MG TABLET.DR PO SCH (08:24)
[2018-10-28] MEDS: FOLIC ACID 1 MG TABLET PO SCH (08:24)
[2018-10-28] MEDS: THIAMINE HCL 100 MG TABLET PO SCH (08:24)
[2018-10-28] MEDS: MULTIVITAMINS,THERAGRAN 1 UDTAB TABLET PO SCH (08:24)
[2018-10-28] MEDS: BLOOD SUGAR DIAGNOSTIC 1 EACH STRIP VI SCH ×4 (08:25→22:00)
[2018-10-28] MEDS: ENOXAPARIN SODIUM 40 MG/0.4 ML DISP.SYRIN SQ SCH (08:26)
[2018-10-28] MEDS: CEFEPIME 2 GM in IV D5W 100 ML IV SCH (08:29)
[2018-10-28] MEDS ORDERED: VALS80TA2 PO (11:29)
[2018-10-28] MEDS ORDERED: LACT1CAP72 PO (11:29)
[2018-10-28] MEDS ORDERED: VANC1.2511 IV (11:29)
[2018-10-28] MEDS ORDERED: FLUC100T8 PO (11:29)
[2018-10-28] MEDS ORDERED: ASPI-1169 PO (11:29)
[2018-10-28] MEDS ORDERED: CEFE2FRO IV (11:29)
[2018-10-28] MEDS ORDERED: ENOX40DI SQ (11:29)
[2018-10-28] MEDS ORDERED: Thiamine HCL PO (11:29)
[2018-10-28] MEDS ORDERED: MULT-24 PO (11:29)
[2018-10-28] MEDS ORDERED: FOLI1TAB16 PO (11:29)
[2018-10-28] MEDS ORDERED: RXVAN XX (11:29)
[2018-10-28] MEDS: IV NS 0.9% 1,000 ML IV PRN (12:00)
[2018-10-28] MEDS: INSULIN REGULAR, HUMAN 100 UNIT/ML 3 ML VIAL SQ PRN ×2 (12:27→17:35)
[2018-10-28] MEDS ORDERED: POTASSIUM CHLORIDE 20 MEQ TAB.PRT.SR PO SCH (12:30)
--- NOTE | 2018-10-28 13:49 | NUR ---
RN MS NOTES SPOKE WITH MALDONADO WHETA AT BEDSIDE SHE STATED THAT FINANCIALLY THEY ARE UNABLE TO PAY $200 A DAY FOR SNF WOULD LIKE TO SPEAK WITH CW PHONE # FOR MARY ALICE [phone]
[2018-10-28] MEDS ORDERED: LEVOFLOXACIN (500MG) 500 MG TABLET PO SCH (16:00)
--- NOTE | 2018-10-28 19:47 | NUR ---
RN MS CLOSING NOTES REPORT GIVEN TO NOC. PATIENT TO BE DISCHARGED. FAMILY MEMBER SHOWED UP AT 1900 . ALL EXIT CARE AND PHOTOS TAKEN OF WOUND. F/U INSTRUCTIONS GIVEN TO PT AND FAMILY FOR [facility] IN THE AM. ALL LABS AND RADIOLOGY REPORTS PROVIDED. IV IN (L) HAND REMOVED. PT TO BE DISCHARGED WITH [facility] AND HOME HEALTH ASSIGNED TO PATIENT. WILL ENDORSE TO NOC IN FINISHING AND PREPARING DISCHARGE
--- NOTE | 2018-10-28 21:09 | NUR ---
RN NOTES [facility]LINE WAS ACCIDENTALLY REMOVED. MIDLINE/PICCLINE NURSE JOSE ANTONIO WILL BE COMING BACK BETWEEN 10-11PM TO REINSERT MIDLINE. [facility] IS ARRANGING FOR TRANSPORT FOR Pt TO BE TAKEN HOME AFTER MIDLINE IS PLACED SINCE FAMILY MEMBER IS UNABLE TO WAIT THAT LONG OR COME BACK AT A LATER TIME. SPOKE WITH DR HOROWITZ TO UPDATE HIM OF THE SITUATION, SAID OK FOR THE MIDLINE REINSERTION. SPOKE WITH Pt's NIECE AND INFORMED HER OF THE SITUATION, AND EXPLAINED TRANSPORT WILL BE ARRANGED TO TAKE Pt HOME, NIECE CONFIRMED THAT SHE WILL BE HOME TO ACCEPT THE Pt WHEN HE ARRIVES.
--- NOTE | 2018-10-28 21:20 | NUR ---
ADDRESS: [id number] [place] [address]. ([facility])
--- NOTE | 2018-10-28 22:35 | NUR ---
RN NOTES MIDLINE/PICCLINE RN INSERTED [facility] MIDLINE #18G.
--- NOTE | 2018-10-28 23:46 | NUR ---
ONLINE COMMUNICATIONS MANAGER NOTES [facility] HAS ARRIVED TO VIBRATION TECHNICIAN Pt TO TRANSPORT HIM BACK HOME. [facility]LINE IS INTACT AND PATENT. FLUSHED WITH NS. Pt IS A/OX4, OCCITAN SPEAKING. NO S/S OF ACUTE DISTRESS OR SOB NOTED. ALL NEEDS MET AND ATTENDED TO. SAFETY MEASURES IN PLACE. DISCHARGE PACKET GIVEN TO Pt. Pt LEFT FACILITY VIA WHEELCHAIR BROUGHT IN BY TRANSPORT VIBRATION TECHNICIAN. Pt HAS SAFELY LEFT THE BUILDING.
== END 2018-10-28 23:45 | disposition home or self-care (01) | DRG 710 ==
LOC: ER 13:20 → TELE1 19:04 → MEDSG1 10-26 12:25
PROVIDERS: ADMIT Nurse Practitioner Acute Care; ATTEND Nurse Practitioner Acute Care
DX: A41.9 Sepsis, unspecified organism (principal); E11.42 Type 2 diabetes mellitus with diabetic polyneuropathy; E87.2 Acidosis; L03.115 Cellulitis of right lower limb; M86.172 Other acute osteomyelitis, left ankle and foot; E11.51 Type 2 diabetes mellitus with diabetic peripheral angiopathy without gangrene; E44.1 Mild protein-calorie malnutrition; E87.1 Hypo-osmolality and hyponatremia; E11.621 Type 2 diabetes mellitus with foot ulcer; E11.65 Type 2 diabetes mellitus with hyperglycemia; E11.69 Type 2 diabetes mellitus with other specified complication; L03.116 Cellulitis of left lower limb; E87.6 Hypokalemia; E66.9 Obesity, unspecified; D63.8 Anemia in other chronic diseases classified elsewhere; Z86.718 Personal history of other venous thrombosis and embolism; L97.524 Non-pressure chronic ulcer of other part of left foot with necrosis of bone; I87.311 Chronic venous hypertension (idiopathic) with ulcer of right lower extremity; Z68.36 Body mass index [BMI] 36.0-36.9, adult; Z88.0 Allergy status to penicillin; B35.1 Tinea unguium; Z89.422 Acquired absence of other left toe(s); Z91.14 Patient's other noncompliance with medication regimen; Z82.49 Family history of ischemic heart disease and other diseases of the circulatory system; Z79.82 Long term (current) use of aspirin; I10 Essential (primary) hypertension; F10.20 Alcohol dependence, uncomplicated; Z68.37 Body mass index [BMI] 37.0-37.9, adult
CPT/HCPCS: 36415; 71045-TC; 73630-TC; 80048-TC; 80053-TC; 80061-TC; 80076-TC; 80202-TC; 82962-TC; 83605-TC; 83735-TC; 83880; 84100-TC; 84484-TC; 85025-TC; 85730-TC; 87040-TC; 87070-TC; 87081-TC; 87086-TC; 93970-TC; A4216; A6402; A6403; A6407; G0378; J0692; J1450; J1650; J1815; J2060; J2270; J2405; J2543; J3370; J3475; J7030; J7040; J7060

== ENCOUNTER 2019-10-17 13:44 | Inpatient (IN) | payer MEDICAID ==
[~2019-10-17] VITALS: Ht 170.2 cm; Wt 106.6 kg
[~2019-10-17 13:44] MED LIST changes: +CEFE2FRO IV; +ENOX40DI SQ; +FLUC100T8 PO; +FOLI1TAB16 PO; -LEVO500T75 PO; +MULT-24 PO; +RXVAN XX; +Thiamine HCL PO; +VALS80TA2 PO; +VANC1.2511 IV
[2019-10-17 14:42] LABS: BASOPHILS % (AUTO) 0.5 % (0.0-2.0); EOSINOPHILS % (AUTO) 0.6 % (0.0-6.0); HEMATOCRIT 35 % (39-51); HEMOGLOBIN 11.9 g/dL (13.5-17.5); LYMPHOCYTES # (AUTO) 0.5 /CMM (0.8-4.8); MEAN CORPUSCULAR HGB CONC 34 g/dl (31.0-36.0); MEAN CORPUSCULAR VOLUME 84 fL (80-96); MONOCYTES % (AUTO) 12.3 % (2.0-12.0); NEUTROPHILS # (AUTO) 6.8 /CMM (1.8-8.9); NEUTROPHILS % (AUTO) 80.6 % (43.0-81.0); PLATELET COUNT (AUTO) 363 /CMM (150-450); RED BLOOD CELL COUNT(AUTO) 4.21 MIL/uL (4.5-6.0); WHITE BLOOD COUNT (AUTO) 8.5 K/uL (4.3-11.0)
[2019-10-17 14:47] LABS: CALCIUM, SERUM 8.2 mg/dL (8.5-10.1); CREATININE 0.9 mg/dL (0.6-1.3); POTASSIUM 3.5 mmol/L (3.5-5.1)
[2019-10-17 14:53] LABS: ALBUMIN 2.2 g/dL (3.4-5.0); BILIRUBIN,DIRECT 0.3 mg/dL (0.0-0.2); BILIRUBIN,TOTAL 0.6 mg/dL (0.2-1.0); TOTAL PROTEIN, SERUM 7.4 g/dL (6.4-8.2)
[2019-10-17] MEDS ORDERED: IV NS 0.9% 1,000 ML BAG IV ONE (15:30)
[2019-10-17] MEDS ORDERED: CEFEPIME 1 GM VIAL IV ONE (15:30)
[2019-10-17] MEDS ORDERED: VANCOMYCIN 1 GM in IV D5W 250 ML IV ONE (15:30)
[2019-10-17] MEDS ORDERED: CEFEPIME 2 GM in IV D5W 100 ML IV ONE (16:00)
[2019-10-17 16:09] LABS: APPEARANCE,URINE Clear (CLEAR); BILIRUBIN,URINE Negative (NEGATIVE); BLOOD, URINE Negative Ery/uL (NEGATIVE); COLOR,URINE Yellow (YELLOW); KETONES,URINE Negative (NEGATIVE); LEUKOCYTE ESTERASE ,URINE Negative (NEGATIVE); NITRITE, URINE Negative (NEGATIVE); PROTEIN,URINE Negative (NEGATIVE); UGLUCOSE Negative (NEGATIVE)
[2019-10-17 16:37] LABS: BACTERIA,URINE None seen /HPF (None Seen); RBC,URINE 0-2 /HPF (0-2); SQUAMOUS EPITHELIAL CELL,UR 0-2 /HPF (None Seen); WBC,URINE 0-2 /HPF (0-3)
[2019-10-17] MEDS ORDERED: DEXTROSE 50%-WATER 50 ML DISP.SYRIN IV PRN (19:00)
[2019-10-17] MEDS ORDERED: ZOLPIDEM TARTRATE 5 MG TABLET PO PRN (19:00)
[2019-10-17] MEDS ORDERED: ACETAMINOPHEN 325 MG TABLET PO PRN (19:00)
[2019-10-17] MEDS ORDERED: Z GUARD REMEDY 2 OZ OINT TP PRN (19:00)
[2019-10-17] MEDS ORDERED: ONDANSETRON HCL/PF 4 MG/2 ML VIAL IVP PRN (19:00)
[2019-10-17] MEDS ORDERED: FEE PK DOSING 1 MIN EA MC ONE (19:04)
[2019-10-17] MEDS: BLOOD SUGAR DIAGNOSTIC 1 EACH STRIP IN SCH ×2 (19:04→22:21)
[2019-10-17] MEDS: THIAMINE HCL 100 MG TABLET PO SCH (19:26)
[2019-10-18] MEDS: VANCOMYCIN 1 GM in IV D5W 250 ML IV SCH ×2 (03:22→15:05)
[2019-10-18] MEDS: CEFEPIME 2 GM in IV D5W 100 ML IV SCH ×2 (04:37→16:22)
[2019-10-18 06:35] LABS: BASOPHILS # (AUTO) 0.1 /CMM (0.0-0.2); BASOPHILS % (AUTO) 2.3 % (0.0-2.0); EOSINOPHILS % (AUTO) 2.3 % (0.0-6.0); HEMATOCRIT 33 % (39-51); HEMOGLOBIN 11.3 g/dL (13.5-17.5); LYMPHOCYTES # (AUTO) 0.9 /CMM (0.8-4.8); LYMPHOCYTES % (AUTO) 13.8 % (20.0-44.0); MEAN CORPUSCULAR HGB CONC 34 g/dl (31.0-36.0); MEAN CORPUSCULAR VOLUME 84 fL (80-96); MONOCYTES # (AUTO) 0.9 /CMM (0.1-1.30); MONOCYTES % (AUTO) 14.3 % (2.0-12.0); NEUTROPHILS # (AUTO) 4.2 /CMM (1.8-8.9); NEUTROPHILS % (AUTO) 67.3 % (43.0-81.0); PLATELET COUNT (AUTO) 399 /CMM (150-450); RED BLOOD CELL COUNT(AUTO) 3.95 MIL/uL (4.5-6.0); WHITE BLOOD COUNT (AUTO) 6.2 K/uL (4.3-11.0)
[2019-10-18 06:40] LABS: ALBUMIN 1.9 g/dL (3.4-5.0); BILIRUBIN,TOTAL 0.4 mg/dL (0.2-1.0); CALCIUM, SERUM 7.7 mg/dL (8.5-10.1); CREATININE 0.8 mg/dL (0.6-1.3); PHOSPHORUS 3.2 mg/dL (2.5-4.9); POTASSIUM 3.3 mmol/L (3.5-5.1); TOTAL PROTEIN, SERUM 6.7 g/dL (6.4-8.2)
[2019-10-18 06:54] LABS: THYROID STIMULATING HORMONE 5.217 uIU/mL (0.358-3.74)
[2019-10-18] MEDS: BLOOD SUGAR DIAGNOSTIC 1 EACH STRIP IN SCH ×4 (07:05→21:25)
[2019-10-18 08:00] VITALS: BP 168/76
[2019-10-18] MEDS: VALSARTAN 80 MG TABLET PO SCH (08:22)
[2019-10-18] MEDS: THIAMINE HCL 100 MG TABLET PO SCH (08:22)
[2019-10-18] MEDS: FUROSEMIDE 40 MG/4 ML VIAL IV SCH ×2 (11:03→16:22)
[2019-10-18] MEDS ORDERED: POTASSIUM CHLORIDE 20 MEQ TAB.PRT.SR PO SCH (11:30)
[2019-10-18] MEDS: INSULIN REGULAR, HUMAN 100 UNIT/ML 3 ML VIAL SQ PRN ×3 (11:56→21:25)
[2019-10-18 16:00] VITALS: BP 155/77
[2019-10-18 20:00] VITALS: BP 142/69
[2019-10-19 03:12] LABS: BASOPHILS % (AUTO) 0.6 % (0.0-2.0); EOSINOPHILS % (AUTO) 2.9 % (0.0-6.0); HEMATOCRIT 37 % (39-51); HEMOGLOBIN 12.6 g/dL (13.5-17.5); LYMPHOCYTES # (AUTO) 1.1 /CMM (0.8-4.8); MEAN CORPUSCULAR HGB CONC 34 g/dl (31.0-36.0); MEAN CORPUSCULAR VOLUME 84 fL (80-96); MONOCYTES # (AUTO) 0.8 /CMM (0.1-1.30); MONOCYTES % (AUTO) 13.5 % (2.0-12.0); NEUTROPHILS # (AUTO) 3.8 /CMM (1.8-8.9); PLATELET COUNT (AUTO) 459 /CMM (150-450); RED BLOOD CELL COUNT(AUTO) 4.43 MIL/uL (4.5-6.0)
[2019-10-19 03:18] LABS: CALCIUM, SERUM 8.1 mg/dL (8.5-10.1); CREATININE 0.8 mg/dL (0.6-1.3); POTASSIUM 3.3 mmol/L (3.5-5.1)
[2019-10-19] MEDS: VANCOMYCIN 1 GM in IV D5W 250 ML IV SCH (04:01)
[2019-10-19] MEDS: CEFEPIME 2 GM in IV D5W 100 ML IV SCH ×2 (05:17→17:24)
[2019-10-19] MEDS: INSULIN REGULAR, HUMAN 100 UNIT/ML 3 ML VIAL SQ PRN ×4 (06:59→21:30)
[2019-10-19] MEDS: BLOOD SUGAR DIAGNOSTIC 1 EACH STRIP IN SCH ×4 (06:59→21:28)
[2019-10-19 08:00] VITALS: BP 156/91
[2019-10-19] MEDS: DAKINS QUARTER STRENGTH (0.125%) 480 ML BOTTLE TOP SCH (08:31)
[2019-10-19] MEDS: THIAMINE HCL 100 MG TABLET PO SCH (08:32)
[2019-10-19] MEDS: VALSARTAN 80 MG TABLET PO SCH (08:32)
[2019-10-19] MEDS: FUROSEMIDE 40 MG/4 ML VIAL IV SCH ×2 (08:32→17:24)
[2019-10-19] MEDS ORDERED: POTASSIUM CHLORIDE 20 MEQ TAB.PRT.SR PO SCH (09:30)
[2019-10-19] MEDS: VANCOMYCIN 1.25 GM in IV D5W 250 ML IV SCH (15:06)
[2019-10-19 16:00] VITALS: BP 143/84
[2019-10-19 20:00] VITALS: BP 121/69
[2019-10-20] MEDS: VANCOMYCIN 1.25 GM in IV D5W 250 ML IV SCH ×2 (03:44→16:12)
[2019-10-20] MEDS: CEFEPIME 2 GM in IV D5W 100 ML IV SCH ×2 (05:55→18:12)
[2019-10-20] MEDS: BLOOD SUGAR DIAGNOSTIC 1 EACH STRIP IN SCH ×4 (06:42→21:22)
[2019-10-20] MEDS: INSULIN REGULAR, HUMAN 100 UNIT/ML 3 ML VIAL SQ PRN ×4 (06:43→21:18)
[2019-10-20 07:01] LABS: CALCIUM, SERUM 8.1 mg/dL (8.5-10.1); CREATININE 0.8 mg/dL (0.6-1.3); POTASSIUM 3.1 mmol/L (3.5-5.1)
[2019-10-20 08:00] VITALS: BP 141/73
[2019-10-20] MEDS: THIAMINE HCL 100 MG TABLET PO SCH (08:29)
[2019-10-20] MEDS: VALSARTAN 80 MG TABLET PO SCH (08:30)
[2019-10-20] MEDS: FUROSEMIDE 40 MG/4 ML VIAL IV SCH ×2 (08:30→16:08)
[2019-10-20] MEDS: DAKINS QUARTER STRENGTH (0.125%) 480 ML BOTTLE TOP SCH (08:31)
[2019-10-20] MEDS: POTASSIUM CHLORIDE 20 MEQ TAB.PRT.SR PO SCH ×2 (10:12→11:41)
[2019-10-20 16:00] VITALS: BP_SYST 116; BP_SYST 141; BP_DIAS 69; BP_DIAS 73
[2019-10-20] MEDS ORDERED: LEVOFLOXACIN (750 MG) 750 MG TABLET PO SCH (20:00)
[2019-10-20 20:34] VITALS: BP 116/64
[2019-10-20] MEDS ORDERED: LEVOFLOXACIN (500MG) 500 MG TABLET PO SCH (21:00)
[2019-10-21] MEDS: BLOOD SUGAR DIAGNOSTIC 1 EACH STRIP IN SCH ×3 (06:23→17:30)
[2019-10-21 06:27] LABS: BASOPHILS # (AUTO) 0.1 /CMM (0.0-0.2); BASOPHILS % (AUTO) 1.2 % (0.0-2.0); EOSINOPHILS % (AUTO) 3.1 % (0.0-6.0); HEMATOCRIT 38 % (39-51); HEMOGLOBIN 12.9 g/dL (13.5-17.5); LYMPHOCYTES # (AUTO) 1.3 /CMM (0.8-4.8); LYMPHOCYTES % (AUTO) 18.9 % (20.0-44.0); MEAN CORPUSCULAR HGB CONC 34 g/dl (31.0-36.0); MEAN CORPUSCULAR VOLUME 84 fL (80-96); MONOCYTES # (AUTO) 1.1 /CMM (0.1-1.30); MONOCYTES % (AUTO) 15.4 % (2.0-12.0); NEUTROPHILS # (AUTO) 4.3 /CMM (1.8-8.9); NEUTROPHILS % (AUTO) 61.4 % (43.0-81.0); PLATELET COUNT (AUTO) 438 /CMM (150-450); RED BLOOD CELL COUNT(AUTO) 4.56 MIL/uL (4.5-6.0); WHITE BLOOD COUNT (AUTO) 7.1 K/uL (4.3-11.0)
[2019-10-21 06:34] LABS: CALCIUM, SERUM 8.4 mg/dL (8.5-10.1); CREATININE 0.9 mg/dL (0.6-1.3); POTASSIUM 3.7 mmol/L (3.5-5.1)
[2019-10-21 08:00] VITALS: BP 145/82
[2019-10-21] MEDS: THIAMINE HCL 100 MG TABLET PO SCH (08:36)
[2019-10-21] MEDS: FUROSEMIDE 40 MG/4 ML VIAL IV SCH ×2 (08:36→16:42)
[2019-10-21] MEDS: VALSARTAN 80 MG TABLET PO SCH (08:36)
[2019-10-21] MEDS: DAKINS QUARTER STRENGTH (0.125%) 480 ML BOTTLE TOP SCH (08:37)
[2019-10-21] MEDS ORDERED: LEVO750T46 PO (10:18)
[2019-10-21] MEDS: INSULIN REGULAR, HUMAN 100 UNIT/ML 3 ML VIAL SQ PRN (12:14)
[2019-10-21 16:00] VITALS: BP 116/65
== END 2019-10-21 17:40 | disposition home or self-care (01) | DRG 951 ==
LOC: ER 13:46 → MEDSG2 18:04
PROVIDERS: ADMIT Nurse Practitioner Acute Care; ATTEND Nurse Practitioner Acute Care
DX: L03.116 Cellulitis of left lower limb (principal); E11.40 Type 2 diabetes mellitus with diabetic neuropathy, unspecified; E46 Unspecified protein-calorie malnutrition; E11.65 Type 2 diabetes mellitus with hyperglycemia; E87.1 Hypo-osmolality and hyponatremia; E66.01 Morbid (severe) obesity due to excess calories; D63.8 Anemia in other chronic diseases classified elsewhere; I87.313 Chronic venous hypertension (idiopathic) with ulcer of bilateral lower extremity; L97.829 Non-pressure chronic ulcer of other part of left lower leg with unspecified severity; L97.919 Non-pressure chronic ulcer of unspecified part of right lower leg with unspecified severity; E87.6 Hypokalemia; I10 Essential (primary) hypertension; Z79.4 Long term (current) use of insulin; I89.0 Lymphedema, not elsewhere classified; Z79.82 Long term (current) use of aspirin; Z91.19 Patient's noncompliance with other medical treatment and regimen; J98.11 Atelectasis; E87.70 Fluid overload, unspecified; Z68.36 Body mass index [BMI] 36.0-36.9, adult; Z72.89 Other problems related to lifestyle; L03.115 Cellulitis of right lower limb; B96.20 Unspecified Escherichia coli [E. coli] as the cause of diseases classified elsewhere; I87.2 Venous insufficiency (chronic) (peripheral)
CPT/HCPCS: 36415; 71045-TC; 73590-TC; 73630-TC; 80048-TC; 80053-TC; 80061-TC; 80076-TC; 80202-TC; 81000-TC; 82962-TC; 83605-TC; 83735-TC; 84100-TC; 84443-TC; 85025-TC; 85730-TC; 87040-TC; 87070-TC; 87081-TC; 87186-TC; 93307-TC; 93970-TC; 97116-TC; 97530-TC; A6407; G0378; J0692; J1815; J1940; J3370; J7030; J7050; J7060

== ENCOUNTER 2020-09-27 23:08 | Inpatient (IN) | payer MEDICAID ==
[~2020-09-27] VITALS: Ht 175.3 cm; Wt 117.9 kg
[~2020-09-27 23:08] MED LIST changes: -CEFE2FRO IV; -FLUC100T8 PO; +LEVO750T46 PO; -RXVAN XX; -VANC1.2511 IV
[2020-09-28] MEDS ORDERED: VANCOMYCIN 1 GM in IV D5W 250 ML IV ONE ×2
[2020-09-28] MEDS ORDERED: VANCOMYCIN 1 GM VIAL ONE ×2 (00:28→00:33)
[2020-09-28 00:34] LABS: BASOPHILS % (AUTO) 0.8 % (0.0-2.0); EOSINOPHILS % (AUTO) 4.5 % (0.0-6.0); HEMATOCRIT 40 % (39-51); HEMOGLOBIN 13.2 g/dL (13.5-17.5); LYMPHOCYTES # (AUTO) 0.3 /CMM (0.8-4.8); LYMPHOCYTES % (AUTO) 6.2 % (20.0-44.0); MEAN CORPUSCULAR HGB CONC 33 g/dl (31.0-36.0); MEAN CORPUSCULAR VOLUME 91 fL (80-96); MONOCYTES # (AUTO) 0.7 /CMM (0.1-1.30); MONOCYTES % (AUTO) 15.4 % (2.0-12.0); NEUTROPHILS # (AUTO) 3.2 /CMM (1.8-8.9); NEUTROPHILS % (AUTO) 73.1 % (43.0-81.0); PLATELET COUNT (AUTO) 168 /CMM (150-450); RED BLOOD CELL COUNT(AUTO) 4.37 MIL/uL (4.5-6.0); WHITE BLOOD COUNT (AUTO) 4.4 K/uL (4.3-11.0)
[2020-09-28 00:42] LABS: CALCIUM, SERUM 8.2 mg/dL (8.5-10.1); POTASSIUM 3.5 mmol/L (3.5-5.1)
[2020-09-28 00:56] LABS: ALBUMIN 3.4 g/dL (3.4-5.0); BILIRUBIN,DIRECT 0.4 mg/dL (0.0-0.2); BILIRUBIN,TOTAL 0.9 mg/dL (0.2-1.0); TOTAL PROTEIN, SERUM 8.8 g/dL (6.4-8.2)
[2020-09-28 01:01] LABS: BILIRUBIN,URINE NEGATIVE (NEGATIVE); COLOR,URINE YELLOW (YELLOW); LEUKOCYTE ESTERASE ,URINE NEGATIVE (NEGATIVE); NITRITE, URINE NEGATIVE (NEGATIVE); PROTEIN,URINE NEGATIVE (NEGATIVE); UGLUCOSE NEGATIVE (NEGATIVE); UROBILINOGEN,URINE 0.2 EU/dL (0.2)
--- NOTE | 2020-09-28 01:29 | NUR ---
BED ASSIGNMENT 315-2
[2020-09-28] MEDS ORDERED: Thiamine 100 MG in IV D5W 50 ML IV SCH (01:30)
[2020-09-28] MEDS ORDERED: FOLIC ACID 1 MG TABLET PO ONE (01:30)
[2020-09-28] MEDS ORDERED: MAG HYDROX/AL HYDROX/SIMETH 30 ML UDC PO PRN (01:30)
[2020-09-28] MEDS ORDERED: Z GUARD REMEDY 2 OZ OINT TP PRN (01:30)
[2020-09-28] MEDS ORDERED: HYDROCODONE/APAP 5/325MG TABLET PO PRN (01:30)
[2020-09-28] MEDS ORDERED: LORAZEPAM INJ 2 MG/ML VIAL IV PRN (01:30)
[2020-09-28] MEDS ORDERED: MAGNESIUM HYDROXIDE 30 ML UDC PO PRN (01:30)
[2020-09-28] MEDS ORDERED: DEXTROSE 50%-WATER 50 ML DISP.SYRIN IV PRN (01:30)
[2020-09-28] MEDS ORDERED: ACETAMINOPHEN 325 MG TABLET PO PRN (01:30)
[2020-09-28] MEDS ORDERED: ONDANSETRON HCL/PF 4 MG/2 ML VIAL IVP PRN (01:30)
--- NOTE | 2020-09-28 01:35 | NUR ---
Pt resting calmly in bed, piv was started, vanco infusing, wound cleansed and new dressing applied. resting calmly in bed. placed on nc 2 lmp as desaturates wehn sleeping.
[2020-09-28] MEDS ORDERED: VANCOMYCIN 1 GM in IV D5W 250ml IV ONE (02:00)
[2020-09-28 02:10] VITALS: BP 153/86
--- NOTE | 2020-09-28 03:00 | NUR ---
PATIENT RECEIVED FROM ER ALERT AND ORIENTED X4, DENIES ANY PAIN, LIVES WITH HIS BROTHER, STATES HIS BROTHER BROUGHT HIM TO THE HOSPITAL BECAUSE OF THE WOUND TO HIS LEG. STATES HE HAS A DRINKING PROBLEM. LAST DRINK A FEW HOURS AGO. MAINLY EMIRATI SPEAKING, UNDERSTANDS SIMPLE KINYARWANDA TERMS. ORIENTED TO ROOM AND CALL LIGHT SYSTEM, SEIZURE PRECAUTIONS IMPLEMENTED, WOUND WITH GREENISH DISCHARGE NOTED TO LATERAL LLE, CLEANSED AND DRESSING CHANGED.PATIENT C/O DYSPNEA WITH EXERTION, ON 02 AT 2L VIA NC. VITAL SIGNS STABLE. SAFETY PRECAUTIONS IN PLACE, BED IN LOWEST POSITION, BED ALARM ON. WILL CONTINUE MONITORING CLOSELY AND CARRYOUT ACTIVE ORDERS.
[2020-09-28] MEDS: IV NS 0.9% 1,000 ML IV PRN (03:18)
[2020-09-28] MEDS ORDERED: CIPROFLOXACIN IV RTU 200 ML IV ONE (03:25)
[2020-09-28] MEDS ORDERED: Thiamine 100 MG/ML VIAL ONE (03:25)
[2020-09-28] MEDS: CIPROFLOXACIN IV RTU 400 MG in PREMIX 1 EA IV SCH ×3 (04:30→21:10)
[2020-09-28 06:19] LABS: BASOPHILS % (AUTO) 0.3 % (0.0-2.0); EOSINOPHILS % (AUTO) 4.2 % (0.0-6.0); HEMATOCRIT 33 % (39-51); HEMOGLOBIN 11.4 g/dL (13.5-17.5); LYMPHOCYTES # (AUTO) 0.9 /CMM (0.8-4.8); LYMPHOCYTES % (AUTO) 20.6 % (20.0-44.0); MEAN CORPUSCULAR HGB CONC 34 g/dl (31.0-36.0); MEAN CORPUSCULAR VOLUME 91 fL (80-96); MONOCYTES # (AUTO) 0.7 /CMM (0.1-1.30); MONOCYTES % (AUTO) 16.7 % (2.0-12.0); NEUTROPHILS # (AUTO) 2.5 /CMM (1.8-8.9); NEUTROPHILS % (AUTO) 58.2 % (43.0-81.0); PLATELET COUNT (AUTO) 139 /CMM (150-450); RED BLOOD CELL COUNT(AUTO) 3.67 MIL/uL (4.5-6.0); WHITE BLOOD COUNT (AUTO) 4.3 K/uL (4.3-11.0)
[2020-09-28] MEDS: BLOOD SUGAR DIAGNOSTIC 1 EACH STRIP IN SCH ×4 (06:42→21:35)
[2020-09-28 06:47] LABS: ALBUMIN 2.7 g/dL (3.4-5.0); BILIRUBIN,TOTAL 0.7 mg/dL (0.2-1.0); CALCIUM, SERUM 7.8 mg/dL (8.5-10.1); CREATININE 0.7 mg/dL (0.6-1.3); MAGNESIUM 1.7 mg/dL (1.8-2.4); PHOSPHORUS 3.6 mg/dL (2.5-4.9); POTASSIUM 3.3 mmol/L (3.5-5.1); TOTAL PROTEIN, SERUM 7.2 g/dL (6.4-8.2)
[2020-09-28 06:58] LABS: THYROID STIMULATING HORMONE 4.102 uIU/mL (0.358-3.74)
--- NOTE | 2020-09-28 07:20 | NUR ---
MS RN OPENING NOTE PT RECEIVED ASLEEP IN BED, AROUSABLE AND RESPONSIVE. PT IS A/O X 4 AND IS PRIMARILY NEPALI SPEAKING, BUT CAN UNDERSTAND BASIC TOGOLESE. PT DENIES ANY PAIN AT THIS TIME. HOB IS UP TO SEMI CONDON'S POSITION. PT HAS OXYGEN AT 2 LPM VIA NASAL CANNULA, WITH NO S/SX OF SOB, LABORED BREATHING OR RESPIRATORY DISTRESS AT THIS TIME. PT HAS AN IV ACCESS ON THE LEFT AC G#18 RUNNING NS AT 75 ML/HR, PATENT, INTACT AND FLUSHING WELL WITH NO S/SX OF INFECTION/INFILTRATION. PT IS CURRENTLY ON NPO. PT EDUCATED ON NPO STATUS AND VERBALIZES UNDERSTANDING. SAFETY MEASURES IN PLACE: BED IN LOWEST, LOCKED POSITION WITH BOTH UPPER SIDE RAILS X 2 UP. CALL LIGHT PLACED WITHIN REACH. WILL CONTINUE TO MONITOR.
[2020-09-28] MEDS: PANTOPRAZOLE 40 MG TABLET.DR PO SCH ×2 (07:30→07:48)
[2020-09-28 08:00] VITALS: BP 128/68
[2020-09-28] MEDS: ASPIRIN 81 MG TAB.CHEW PO SCH (08:12)
[2020-09-28] MEDS: LACTOBACILLUS RHAMNOSUS GG 1 EACH CAP.SPRINK PO SCH ×2 (08:13→17:02)
[2020-09-28] MEDS: VALSARTAN 80 MG TABLET PO SCH (08:13)
[2020-09-28] MEDS: MULTIVITAMINS,THERAGRAN 1 UDTAB TABLET PO SCH (08:13)
[2020-09-28] MEDS: ENOXAPARIN SODIUM 40 MG/0.4 ML DISP.SYRIN SQ SCH (08:15)
--- NOTE | 2020-09-28 08:25 | NUR ---
MS RN NOTE PT SEEN BY DR. WALSH WITH NEW ORDERS TO D/C NPO, PUT PT ON CCHO DIET AND LOVENOX 40 MG FOR DVT PROPHYLAXIS.
[2020-09-28 09:26] LABS: EOSINOPHILS % (MANUAL) 5 % (0-4); LYMPHOCYTES % (MANUAL) 23 % (16-48); MONOCYTES % (MANUAL) 12 % (0-11.0); NEUTROPHILS % (MANUAL) 60 (42-76)
--- NOTE | 2020-09-28 10:56 | NUR ---
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 REVIEWED CHART, NURSING DOCUMENTATION AND PHOTOS WHICH INDICATE LOWER LEG WOUNDS, PRESENT ON ADMISSION. RECOMMEND DPM CONSULT. DR MOLINA NOTIFIED OF CONSULT REQUEST. CURRENT MICAELA SCORE IS 17. MD IN AGREEMENT WITH PLAN OF CARE.
[2020-09-28] MEDS: Magnesium 1GM/D5W 100ML PREMIX 100 ML IV SCH ×2 (10:57→11:57)
--- NOTE | 2020-09-28 11:12 | NUR ---
MS RN NOTE PT NOTED WITH LOW POTASSIUM 3.3, ADMINISTERED POTASSIUM K-DUR 20 MEQ PER MD ORDER. PT MAGNESIUM IS 1.7, ADMINISTERED 1G X 100 D5W X 2 DOSES PER MD ORDER. WILL CONTINUE TO MONITOR.
[2020-09-28] MEDS ORDERED: POTASSIUM CHLORIDE 20 MEQ TAB.PRT.SR PO SCH (11:30)
[2020-09-28] MEDS: INSULIN REGULAR, HUMAN 100 UNIT/ML 3 ML VIAL SQ PRN ×2 (11:39→17:20)
--- NOTE | 2020-09-28 13:37 | NUR ---
MS RN NOTE PT P LACED ON ROOM AIR AT THIS TIME. TOLERATING WELL WITH SPO2 95-96%. PT HAS NO C/O SOB. WILL CONTINUE TO MONITOR.
[2020-09-28] MEDS: VANCOMYCIN 1.25 GM in IV D5W 250 ML IV SCH (14:28)
[2020-09-28] MEDS: DAKINS HALF STRENGTH (0.25%) 480 ML BOTTLE TOP SCH (14:36)
--- NOTE | 2020-09-28 15:48 | NUR ---
"SS consult : 2:30pm-SS Consult requested for ETOH abuse & not taking care of kids at home. ANTWAN called pt.s nurse Hali who stated that the pt. was currently eating and SW to see pt. late. SW called the pt.s Niece, Karla Segura [phone] to gather collateral information regarding possible child neglect. Per Karla, the pt. does not have a or children. Per Karla, there is no child abuse/ neglect happening in the home. Karla stated that the pt. is homeless as he is an alcoholic and is disheveled and sleeps outside their apartment door. Per Karla the pt. henriquez-handles and comes home drunk and screaming that he has COVID. Per Karla, her mother recently from COVID-19 virus and so the family does not want to allow the pt. to return inside the home, due to henriquez handling/ ETOH Abuse. 3 pm-SW met with pt. at bedside. The pt. is alert & oriented x 4. The pt. appears disheveled & makes avoidant eye contact. Pt. denies SI/HI and denies hallucinations. Pt. stated he resides [place] his brother, [place] [address] [facility] [address]. SW explored pt.s alcohol use. Pt. stated he was let go of his job about 7 months ago and relapsed into alcoholism. Per pt. he consumes about 6/ 16 oz. bottles of beer daily. SW completed ETOH intervention with pt. Pt. is ambivalent about quitting alcohol use. SW encouraged pt. to go to an inpatient alcohol rehab. Pt. refused. Pt. requested list of resources. ANTWAN placed the homeless waiver in pt.s chart and provided pt. with the following resources: Substance Abuse resources provided included: [facility] Substance Abuse Self-Helpline (SAS) ; CRI -HELP [address] [facility]. [place] [id number] ; [facility] [address] [facility] [address] ; [facility] [address] [facility] [address] ; [place] [address] [address] [facility] [address] ; [facility] Treatment [facility] [address] [facility] [id number] ; [facility] [address] [id number] ; [facility] Substance Abuse Helpline([facility] ; [facility] ; [facility]; [facility] [place]; [facility] [place]; [facility] [place]; [facility]; [place] [facility] [place]; [facility] [place]; [facility], [facility]. [place]; Alcoholics Anonymous -SFV; Jl-Luuy-Fxtvlda ; Marijuana Anonymous -SFV; Narcotics Anonymous www.na.org; Year-round shelters: [facility] [address] [place], [place] [id number] ; [facility] [place] [address] [place] [address]; [place] [facility] [address] [facility] [id number] Winter Shelters: Yariel [place] Provider: [facility] [place] Address: [address] [place], [address] # of Beds: 47 Population Served: [facility] 6 | [facility] Mary Jane Fabian [place] Provider: [facility] Address: [address] [place] [address], [address] # of Beds: 66 Population Served: Roxi Garciaise [place] Provider: [facility] Address: [address] [facility], [address] # of Beds: 56 Population Served: [facility] [place] Provider: [facility] Address: [address] [facility], [address] # of Beds: 49 Population Served: [facility] SPA 8 | [facility] Provider: First [facility] Serve Address: [address] [place], [address] # of Beds: 37 Population Served: Co[facility] Hygiene: [facility]: [address] [place] ; [facility] [address] [facility] ; [facility] [address], [place] . Food Resources: [place] [facility]- [address] [facility]; Meet Each Need with Dign[facility] ([facility]) [address] [facility] [place] [place] [place]; [facility] Food Pantry [address] [facility]; [facility] [address] [facility]. Mental Health resources provided: [facility] [address] [place], [place] [id number] ; [facility] [place] [address] [facility] [address], [place], [place] [id number] ; [place] [facility] [address] [place], [place] [id number] ; [facility] [address] [place], [place] [id number] Healthcare Clinics: [facility] [address] [facility], [address] [place]. [place] ; [facility] [address] [facility] [address] [place] [address]; [facility] [address] [facility]. [place] [id number] [phone]"
--- NOTE | 2020-09-28 18:31 | NUR ---
MS RN CLOSING NOTE PT AWAKE, WATCHING TV AND RESPONSIVE. PT IS A/O X 4. HOB REMAINS ELEVATED. PT IS CURRENTLY ON ROOM AIR, TOLERATING WELL WITH NO S/SX OF SOB, LABORED BREATHING OR RESPIRATORY DISTRESS, WITH SPO2 95-96% AT THIS TIME. PT HAS AN IV ACCESS ON THE LEFT AC G#18 REMAINS PATENT, INTACT AND FLUSHING WELL WITH NO S/SX OF INFECTION/INFILTRATION. SAFETY MEASURES MAINTAINED: BED IN LOWEST POSITION AND LOCKED WITH BOTH UPPER SIDE RAILS X 2 UP. CALL LIGHT PLACED WITHIN REACH. WILL ENDORSE TO POLITICAL SCIENCE INSTRUCTOR NURSE.
[2020-09-28 20:39] VITALS: BP 177/94
--- NOTE | 2020-09-28 20:51 | NUR ---
NURSING NOTE PATIENT RECEIVED IN BED, AWAKE, ALERT AND ORIENTED X4, C/O MODERATE ANXIETY, PT NOTED TO BE SHAKING AND SWEATING. PRN ATIVAN ADMINISTERED PER ORDERS. PT TOLERATED WELL. IV FLUIDS INFUSING PER ORDERS, DRESSING TO LLE INTACT, NO DRAINAGE NOTED. PT VOIDING PER URINAL- CLEAR, YELLOW URINE, PT REMINDED TO USE CALL LIGHT FOR ASSISTANCE. BED ALARM ON, BED IN LOWEST POSITION, CALL LIGHT WITHIN REACH. WILL CONTINUE MONITORING CLOSELY AND CARRY OUT ACTIVE ORDERS.
[2020-09-28 23:45] VITALS: BP 180/93
[2020-09-29] MEDS: CLONIDINE HCL 0.1 MG TABLET PO PRN ×2 (00:26→06:53)
[2020-09-29] MEDS: VANCOMYCIN 1.25 GM in IV D5W 250 ML IV SCH ×2 (00:27→13:05)
[2020-09-29 02:17] VITALS: BP 178/90
[2020-09-29] MEDS: CIPROFLOXACIN IV RTU 400 MG in PREMIX 1 EA IV SCH ×3 (04:49→21:17)
[2020-09-29] MEDS: BLOOD SUGAR DIAGNOSTIC 1 EACH STRIP IN SCH ×4 (06:52→21:27)
[2020-09-29 07:19] LABS: BASOPHILS % (AUTO) 0.7 % (0.0-2.0); EOSINOPHILS % (AUTO) 0.3 % (0.0-6.0); HEMATOCRIT 37 % (39-51); HEMOGLOBIN 12.7 g/dL (13.5-17.5); LYMPHOCYTES # (AUTO) 0.5 /CMM (0.8-4.8); LYMPHOCYTES % (AUTO) 7.2 % (20.0-44.0); MEAN CORPUSCULAR HGB CONC 34 g/dl (31.0-36.0); MEAN CORPUSCULAR VOLUME 90 fL (80-96); MONOCYTES % (AUTO) 16.3 % (2.0-12.0); NEUTROPHILS # (AUTO) 4.8 /CMM (1.8-8.9); NEUTROPHILS % (AUTO) 75.5 % (43.0-81.0); PLATELET COUNT (AUTO) 142 /CMM (150-450); RED BLOOD CELL COUNT(AUTO) 4.14 MIL/uL (4.5-6.0); WHITE BLOOD COUNT (AUTO) 6.4 K/uL (4.3-11.0)
[2020-09-29 07:31] LABS: CALCIUM, SERUM 8.2 mg/dL (8.5-10.1); CREATININE 0.8 mg/dL (0.6-1.3); MAGNESIUM 1.5 mg/dL (1.8-2.4); PHOSPHORUS 2.4 mg/dL (2.5-4.9)
--- NOTE | 2020-09-29 07:40 | NUR ---
MS RN OPENING NOTE PATIENT IN BED. A/O X 4. AFEBRILE. DENIES PAIN AT THIS TIME. ON NC @ 2 LPM. NO SOB NOTED. NO S/S OF RESPIRATORY DISTRESS. IV ACCESS ON L AC #18 G, NS RUNNING @ 75 ML/HR. SAFETY MEASURES MAINTAINED. BED IN LOWEST POSITION, BRAKES LOCKED. SIDE RAILS UP X2. CALL LIGHT WITHIN REACH. WILL CONTINUE PLAN OF CARE.
[2020-09-29 08:00] VITALS: BP 139/87
[2020-09-29] MEDS: ENOXAPARIN SODIUM 40 MG/0.4 ML DISP.SYRIN SQ SCH (08:06)
[2020-09-29] MEDS: LACTOBACILLUS RHAMNOSUS GG 1 EACH CAP.SPRINK PO SCH ×2 (08:07→16:56)
[2020-09-29] MEDS: DAKINS HALF STRENGTH (0.25%) 480 ML BOTTLE TOP SCH (08:07)
[2020-09-29] MEDS: THIAMINE HCL 100 MG TABLET PO SCH (08:07)
[2020-09-29] MEDS: ASPIRIN 81 MG TAB.CHEW PO SCH (08:07)
[2020-09-29] MEDS: MULTIVITAMINS,THERAGRAN 1 UDTAB TABLET PO SCH (08:07)
[2020-09-29] MEDS: PANTOPRAZOLE 40 MG TABLET.DR PO SCH (08:07)
[2020-09-29 08:21] LABS: BAND % (MANUAL) 1 % (0.0-5.0); LYMPHOCYTES % (MANUAL) 7 % (16-48); MONOCYTES % (MANUAL) 12 % (0-11.0); MYELOCYTES % 1 % (0-0); NEUTROPHILS % (MANUAL) 79 (42-76)
[2020-09-29] MEDS: POTASSIUM CL. PREMIX PERIPHER. 50 ML IV SCH ×6 (08:34→14:31)
[2020-09-29] MEDS: Magnesium 1GM/D5W 100ML PREMIX 100 ML IV SCH ×2 (09:20→10:20)
[2020-09-29] MEDS: IV NS 0.9% 1,000 ML IV PRN (09:27)
[2020-09-29] MEDS: VALSARTAN 80 MG TABLET PO SCH (09:35)
[2020-09-29] MEDS: INSULIN REGULAR, HUMAN 100 UNIT/ML 3 ML VIAL SQ PRN ×2 (12:25→21:28)
[2020-09-29] MEDS ORDERED: DAKINS HALF STRENGTH (0.25%) 480 ML BOTTLE TOP SCH (14:00)
[2020-09-29] MEDS ORDERED: K PHOS NEUTRAL 250 MG TABLET PO ONE (15:30)
[2020-09-29 16:00] VITALS: BP 143/91
--- NOTE | 2020-09-29 18:09 | NUR ---
MS RN CLOSING NOTE PATIENT RESTING IN BED. A/O X 4. AFEBRILE. DENIES PAIN AT THIS TIME. ON NC @ 2 LPM. NO SOB NOTED. IN NO APPARENT DISTRESS. IV ACCESS ON L AC #18 G, INTACT AND PATENT, NS RUNNING @ 75 ML/HR. ALL NEEDS HAVE BEEN MET. ROUTINE MEDS WERE GIVEN ORDERED. WOUND TREATMENT ORDERED, KEPT CLEAN AND DRY. SAFETY MEASURES MAINTAINED. BED IN LOWEST POSITION, BRAKES LOCKED. SIDE RAILS UP X2. CALL LIGHT WITHIN REACH. WILL ENDORSE TO CRANE FOLLOWER FOR RICKEY.
--- NOTE | 2020-09-29 19:37 | NUR ---
MS RN: CONTINUITY OF CARE Patient in A/O x4. LLE wound dressing C/D/I no c/o pain. IVF infusing. On IV antibiotic. Reminders to use call light for help/assistance, verbalized understanding.
[2020-09-29 20:00] VITALS: BP 161/95
[2020-09-30] MEDS: VANCOMYCIN 1.25 GM in IV D5W 250 ML IV SCH ×2 (00:22→12:02)
[2020-09-30] MEDS: CIPROFLOXACIN IV RTU 400 MG in PREMIX 1 EA IV SCH (05:08)
[2020-09-30] MEDS: IV NS 0.9% 1,000 ML IV PRN (05:10)
--- NOTE | 2020-09-30 06:42 | NUR ---
MS RN: END OF SHIFT REPORT Stable oxygen saturation on room air. On IV Cipro and Vancomycin, afebrile. IVF infusing. Left lower wound dressing clean/dry/intact, denies pain. Ambulated to the bathroom, independent with ADL and mobility. Will endorse to oncoming RN.
[2020-09-30] MEDS: BLOOD SUGAR DIAGNOSTIC 1 EACH STRIP IN SCH ×2 (06:47→12:04)
[2020-09-30] MEDS: INSULIN REGULAR, HUMAN 100 UNIT/ML 3 ML VIAL SQ PRN ×2 (06:47→12:03)
[2020-09-30 07:34] LABS: CALCIUM, SERUM 8.5 mg/dL (8.5-10.1); MAGNESIUM 1.6 mg/dL (1.8-2.4); PHOSPHORUS 2.7 mg/dL (2.5-4.9)
[2020-09-30 07:43] LABS: FREE T4 (FREE THYROXINE) 1.28 ng/dL (0.76-1.46)
[2020-09-30] MEDS: PANTOPRAZOLE 40 MG TABLET.DR PO SCH (07:53)
[2020-09-30 08:00] VITALS: BP 137/65
[2020-09-30] MEDS ORDERED: POTASSIUM CHLORIDE 10 MEQ/50 ML PREMIXED IVPB FOR PERIPHERAL LINE IV ONE (08:00)
[2020-09-30] MEDS ORDERED: Magnesium 1GM/D5W 100ML PREMIX PIGGYBACK IV ONE (08:00)
--- NOTE | 2020-09-30 08:00 | NUR ---
RN Opening note Received patient in bed AO x 4 Latvian speaking, does no appears pain or distress, skin is warm to touch keep clean/dry, intact IV site on left FA 22g running NS at 75ml. Respiratory even and unlabored on room air. Kept elevated HOB for ensure airway and aspiration precaution also lower bed position with bed alarm on for safety. Potassium level 3.0 and Mg 1.6 this morning, MD aware and received new order Mg 2gm, Potassium 60 mEq, noted and carry out. Call light within reach, will continue to monitor.
[2020-09-30] MEDS: ENOXAPARIN SODIUM 40 MG/0.4 ML DISP.SYRIN SQ SCH (08:36)
[2020-09-30 08:38] VITALS: BP 137/75
[2020-09-30] MEDS: THIAMINE HCL 100 MG TABLET PO SCH (08:38)
[2020-09-30] MEDS: MULTIVITAMINS,THERAGRAN 1 UDTAB TABLET PO SCH (08:38)
[2020-09-30] MEDS: ASPIRIN 81 MG TAB.CHEW PO SCH (08:38)
[2020-09-30] MEDS: VALSARTAN 80 MG TABLET PO SCH (08:38)
[2020-09-30] MEDS: LACTOBACILLUS RHAMNOSUS GG 1 EACH CAP.SPRINK PO SCH (08:38)
[2020-09-30] MEDS: POTASSIUM CL. PREMIX PERIPHER. 50 ML IV SCH ×6 (08:39→13:40)
[2020-09-30] MEDS: Magnesium 1GM/D5W 100ML PREMIX 100 ML IV SCH ×2 (08:39→09:29)
[2020-09-30] MEDS: DAKINS HALF STRENGTH (0.25%) 480 ML BOTTLE TOP SCH (09:29)
--- NOTE | 2020-09-30 15:00 | NUR ---
Patient signed AMA and left facility, who verbally understanding the risks and consequences involved in leaving the hospital at this time, the benefits of continued treatment and hospitalization. Remove IV line and ID band before patient leave, made aware.
[2020-09-30] MEDS ORDERED: CIPROFLOXACIN HCL 250 MG TABLET PO SCH (18:00)
== END 2020-09-30 14:40 | disposition left against medical advice (07) | DRG 364 ==
LOC: ER 23:12 → MED 09-28 01:38
PROVIDERS: ADMIT Family Medicine; ATTEND Family Medicine
PROC: 0KBT0ZZ Excision of Left Lower Leg Muscle, Open Approach (ICD-10-PCS; principal; 2020-09-28)
DX: L03.116 Cellulitis of left lower limb (principal); E11.69 Type 2 diabetes mellitus with other specified complication; G92 Toxic encephalopathy; L02.416 Cutaneous abscess of left lower limb; E11.622 Type 2 diabetes mellitus with other skin ulcer; L97.829 Non-pressure chronic ulcer of other part of left lower leg with unspecified severity; I10 Essential (primary) hypertension; F10.129 Alcohol abuse with intoxication, unspecified; Y90.8 Blood alcohol level of 240 mg/100 ml or more; E11.65 Type 2 diabetes mellitus with hyperglycemia; E11.40 Type 2 diabetes mellitus with diabetic neuropathy, unspecified; E66.01 Morbid (severe) obesity due to excess calories; E46 Unspecified protein-calorie malnutrition; Z79.82 Long term (current) use of aspirin; Z79.4 Long term (current) use of insulin; Z82.49 Family history of ischemic heart disease and other diseases of the circulatory system; Z88.0 Allergy status to penicillin; Z79.899 Other long term (current) drug therapy; D63.8 Anemia in other chronic diseases classified elsewhere; E87.6 Hypokalemia; K76.6 Portal hypertension; M86.679 Other chronic osteomyelitis, unspecified ankle and foot; R26.9 Unspecified abnormalities of gait and mobility; I87.2 Venous insufficiency (chronic) (peripheral); Z68.38 Body mass index [BMI] 38.0-38.9, adult; E83.42 Hypomagnesemia; F29 Unspecified psychosis not due to a substance or known physiological condition
CPT/HCPCS: 36415; 73590-TC; 80048-TC; 80053-TC; 80061-TC; 80076-TC; 80202-TC; 82962-TC; 83735-TC; 83880; 84100-TC; 84439-TC; 84443-TC; 85025-TC; 85730-TC; 87040-TC; 87070-TC; 87081-TC; 87186-TC; 93970-TC; A4216; A6253; A6403; C9803; G0378; G0480; J0744; J1650; J1815; J2060; J3370; J3411; J3475; J3480; J7030; J7040; J7060